=== PATIENT | female | born 1960 | race African-American/Black ===

== ENCOUNTER → 2017-04-09 | Outpatient (CLI) | payer OTHER, BC ==
[2016-08-31 16:19] VITALS: BP 123/67
[~2017-04-09] MED LIST: ALEN70TA5 PO; ARIP20TA5 PO; ASPI-630 PO; ATOR40TA59 PO; BACL10TA PO; BUTA1CAP29 PO; CARV3.122 PO; CLOP75TA PO; CYCL-331 PO; ERGO500027 PO; ESTR1TAB15 PO; FLUO20CA8 PO; FLUO40CA9 PO; FLUO60TA PO; FURO40TA4 PO; HYDR-971 PO; IBUP400T18 PO; LAMO100T5 PO; LORA1TAB PO; LORA2TAB PO; OMEP40CA5 PO; PANT40TA5 PO; POTA8TAB PO; PROP20TA PO; RANO500T2 PO; SIMV10TA3 PO; SOTA80TA48 PO; TIZA4CAP PO; TOPI200T25 PO
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
[2017-04-09 16:23] LABS: CREATININE 1.4 mg/dL (0.6-1.0); GFR 47.2
== END | disposition home or self-care (01) ==
LOC: CT 15:47
PROVIDERS: ATTEND Family Medicine
DX: S06.0X0A Concussion without loss of consciousness, initial encounter (principal); V89.2XXA Person injured in unspecified motor-vehicle accident, traffic, initial encounter; Y93.9 Activity, unspecified; Y92.89 Other specified places as the place of occurrence of the external cause; Y99.9 Unspecified external cause status
CPT/HCPCS: 36415; 70450; 82565

== ENCOUNTER 2017-04-11 19:55 | Observation (INO) | payer OTHER, BC ==
[~2017-04-11] VITALS: Ht 182.9 cm; Wt 108.0 kg
[~2017-04-11 19:55] MED LIST changes: -BACL10TA PO; -CYCL-331 PO; -FLUO20CA8 PO; -IBUP400T18 PO
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
[2017-04-11 21:03] LABS: BASO # 0.1 x10^3/uL (0.0-0.2); BASO % 0 % (0-3); EOS # 0.5 x10^3/uL (0.0-0.7); EOS % 4 % (0-3); HEMATOCRIT 35.4 % (36.0-47.0); HEMOGLOBIN 11.9 g/dL (12.0-15.5); LYMPH # 3.3 x10^3/uL (1.0-4.8); LYMPH % 28 % (24-48); MEAN CORPUSCULAR HEMOGLOBIN 31 pg (25-35); MEAN CORPUSCULAR HGB CONC 34 g/dL (31-37); MEAN CORPUSCULAR VOLUME 91 fL (79-100); MONO # 0.9 x10^3/uL (0.0-1.1); MONO % 8 % (0-9); NEUT # 6.9 x10^3uL (1.8-7.7); NEUT % 59 % (31-73); PLATELET COUNT 264 x10^3/uL (140-400); RED BLOOD COUNT 3.89 x10^6/uL (3.50-5.40); WHITE BLOOD COUNT 11.8 x10^3/uL (4.0-11.0)
--- NOTE | 2017-04-11 21:09 | RAD ---
Examination: CT abdomen with contrast HISTORY: History of altered mental status COMPARISON: 04/09/2015 TECHNIQUE: Axial CT images of the head was performed without contrast. Exposure: One or more of the following individualized dose reduction techniques were utilized for this examination: 1. Automated exposure control 2. Adjustment of the mA and/or kV according to patient size 3. Use of iterative reconstruction technique FINDINGS: There is no evidence of midline shift. There is no acute intracranial bleed or extra-axial fluid collection identified. The beasley-white matter differentiation is maintained. The visualized lateral ventricles, third ventricle, fourth ventricle are appropriate for age. The basal cisterns aren't effaced. The visualized paranasal sinuses, mastoid air cells are clear. IMPRESSION: No acute intracranial findings. Electronically signed by: Ede Christie MD (04/11/2017 9:06 PM)
[2017-04-11 21:17] LABS: ACETAMIN < 2 mcg/mL (10-30); ETHANOL < 10 mg/dL (0-10); SALIC 0.5 mg/dL (2.8-20.0)
[2017-04-11 21:27] LABS: CALCIUM 8.9 mg/dL (8.5-10.1); CREATININE 1.3 mg/dL (0.6-1.0); GFR 51.5; MAGNESIUM 2.2 mg/dL (1.8-2.4); POTASSIUM 3.6 mmol/L (3.5-5.1)
[2017-04-11 21:30] LABS: AMPHETAMINE/METHAMPHETAMINE NEG (NEG); BARBITURATES NEG (NEG); BENZODIAZEPINES NEG (NEG); CANNABINOIDS NEG (NEG); COCAINE NEG (NEG); METHADONE NEG (NEG); OPIATES POS (NEG); PHENCYCLIDINE NEG (NEG)
[2017-04-11 21:41] LABS: BILIRUBIN,URINE NEG (NEG); CLARITY,URINE CLOUDY; COLOR,URINE YELLOW; GLUCOSE,URINE NEG (NEG); NITRITE,URINE NEG (NEG); UROBILINOGEN,URINE 0.2 mg/dL (0.2 mg/dL)
[2017-04-11 21:42] LABS: BACTERIA,URINE FEW /HPF (0-FEW); SQUAMOUS EPITHELIAL CELL,UR MANY /LPF
--- NOTE | 2017-04-11 23:00 | ACF ---
Admission Criteria Forms MENTAL STATUS CHANGE Clinical Indications for Inpatient Care (Place 'X' for any and all applicable criteria): Ongoing inpatient care may be needed for 1 or more of the following(1)(2)(3)(5)( 6): [ ]I. Suspected serious etiology (eg, medical disorder, USER EXPERIENCE RESEARCHER event) of altered mental status [ ]II. Danger to self or others not manageable at lower level of care [ ]III. Grave disability (eg, inability to perform self care necessary at lower level of care) [ ]IV. Agitation or inappropriate behavior interfering with care for primary condition (eg, attempting to discontinue lines or drains prematurely, unable to cooperate with respiratory care) [ ]V. Delirium [A] [D][E] as described by 1 or more of the following(26): [ ]a) Delirium due to alcohol or sedative [F] withdrawal [ ]b) Delirium of uncertain etiology that has not responded to appropriate empiric treatment [ ]c) Delirium that prevents performance of a life-sustaining function (eg, feeding or hydrating oneself) [X]. General contraindications and/or Inappropriate clinical situations for Observational Care in patients with Mental Status Change, when ANY ONE of the following is required: [X]a) Prediction of prolongation of LOS based on ANY ONE of the following may be considered as a contraindication for observational care 2, 3, 4, 5, 6, 7, 8, 9, 10, 11 [X]i) Age > 65 yrs. [ ]ii) Patient arriving by ambulance [ ]iii) Patient with high acuity [ ]iv) Patient requiring vital sign monitoring [ ]v) Patient on IV medication [ ]b) Systolic blood pressures greater than or equal to 180mmHg 3, 12 [ ]c) Patient with altered mental status including delirium and other alteration of consciousness, (3) [ ]d) Patient whose discharge disposition will be to a halfway home or rehabilitation home should not be managed in Emergency Department Observation Unit. CMS rule requires 3 days hospital stay before such placement.3,13 [ ]e) Patient with failure to thrive due to broad array of etiologies 3,16,17 [ ]f) Inability to ambulate 3,14 Extended stay beyond goal length of stay for the primary condition may be needed until ALL of the following are present(3)(5): [ ]a) Underlying medical etiology of mental status change is absent, or has been established and adequately treated [ ]b) Danger to self or others is absent or manageable at lower level of care. [ ]c) Behavior crisis management, including physical or chemical restraints, is not required or available at lower level of car [ ]d) Substance or alcohol withdrawal is absent or manageable at lower level of care. [ ]e) Behavioral symptoms (eg, agitation, somnolence, inappropriate behavior) are absent, or are manageable at lower level of care. The original [facility] content created by [facility] has been revised. The portions of the content which have been revised are identified through the use of italic text or in bold, and [facility] has neither reviewed nor approved the modified material. All other unmodified content is copyright [facility]. Please see references footnoted in the original [facility] edition 2016 Admission Criteria Met?: Yes JENNIFER RASMUSSEN Apr 11, 2017 22:59
[2017-04-11] MEDS ORDERED: ONDANSETRON PF 4 MG/2 ML VIAL. IV PRN (23:15)
[2017-04-12 00:15] VITALS: BP 138/72
[2017-04-12] MEDS ORDERED: IBUPROFEN 400 MG TABLET. PO PRN (00:45)
[2017-04-12] MEDS ORDERED: BACL10TA PO (01:01)
[2017-04-12] MEDS ORDERED: CYCL-331 PO (01:04)
[2017-04-12] MEDS ORDERED: FLUO20CA8 PO (01:04)
[2017-04-12] MEDS ORDERED: FLUO60TA PO (01:06)
[2017-04-12] MEDS ORDERED: IBUP400T18 PO (01:06)
--- NOTE | 2017-04-12 01:31 | EKG ---
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
[2017-04-12 04:22] LABS: BASO # 0.1 x10^3/uL (0.0-0.2); BASO % 1 % (0-3); EOS # 0.5 x10^3/uL (0.0-0.7); EOS % 5 % (0-3); HEMATOCRIT 34.1 % (36.0-47.0); HEMOGLOBIN 11.6 g/dL (12.0-15.5); LYMPH # 3.3 x10^3/uL (1.0-4.8); LYMPH % 34 % (24-48); MEAN CORPUSCULAR HEMOGLOBIN 31 pg (25-35); MEAN CORPUSCULAR HGB CONC 34 g/dL (31-37); MEAN CORPUSCULAR VOLUME 91 fL (79-100); MONO # 0.8 x10^3/uL (0.0-1.1); MONO % 8 % (0-9); NEUT # 5.1 x10^3uL (1.8-7.7); NEUT % 52 % (31-73); PLATELET COUNT 245 x10^3/uL (140-400); RED BLOOD COUNT 3.73 x10^6/uL (3.50-5.40); RED CELL DISTRIBUTION WIDTH 13.9 % (11.5-14.5); WHITE BLOOD COUNT 9.7 x10^3/uL (4.0-11.0)
[2017-04-12 04:33] LABS: CALCIUM 8.7 mg/dL (8.5-10.1); CREATININE 1.2 mg/dL (0.6-1.0); GFR 56.4; POTASSIUM 3.6 mmol/L (3.5-5.1)
[2017-04-12 06:19] VITALS: BP 118/82
--- NOTE | 2017-04-12 07:47 | RAD ---
Portable chest, 04/11/2017: History: Altered mental status, congestive heart failure Comparison is made to a study from 08/29/2016. The patient is rotated to the right. A left-sided transvenous pacing device is again noted with a single lead extending into the right heart. The heart size and pulmonary vascularity are normal. No pulmonary infiltrates are seen. There is no evidence of pleural fluid. There is a mild thoracic scoliosis. IMPRESSION: No acute cardiopulmonary abnormality is detected.
[2017-04-12] MEDS ORDERED: POTASSIUM CHLORIDE 8 MEQ TABLET.ER. PO SCH (08:00)
[2017-04-12] MEDS ORDERED: ASPIRIN 81 MG TAB.CHEW PO SCH (09:00)
[2017-04-12] MEDS ORDERED: FUROSEMIDE 40 MG TABLET PO SCH ×2 (09:00)
[2017-04-12] MEDS ORDERED: SOTALOL 80 MG TABLET. PO SCH (09:00)
[2017-04-12] MEDS ORDERED: FLUoxetine HCL 20 MG CAPSULE PO SCH (09:00)
[2017-04-12] MEDS ORDERED: BACLOFEN 10 MG TABLET PO PRN (10:00)
[2017-04-12] MEDS ORDERED: LORazepam 1 MG TABLET PO PRN (10:00)
[2017-04-12] MEDS ORDERED: ARIPiprazole 10 MG TABLET PO SCH (10:30)
[2017-04-12 10:38] VITALS: BP 119/79
[2017-04-12] MEDS ORDERED: HYDROcodone/APAP 5/325MG 1 TAB TABLET PO PRN (12:30)
[2017-04-12] MEDS ORDERED: LORA2TAB PO (13:13)
[2017-04-12] MEDS ORDERED: ARIP20TA5 PO (13:13)
[2017-04-12] MEDS ORDERED: ATORVASTATIN CALCIUM 20 MG TABLET PO SCH (21:00)
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
== END 2017-04-12 13:42 | disposition home or self-care (01) ==
LOC: ER 19:55 → 1 SOUTH 23:42
PROVIDERS: ADMIT Family Medicine; ATTEND Family Medicine
DX: G93.40 Encephalopathy, unspecified (principal); G43.909 Migraine, unspecified, not intractable, without status migrainosus; I25.2 Old myocardial infarction; I25.10 Atherosclerotic heart disease of native coronary artery without angina pectoris; E78.00 Pure hypercholesterolemia, unspecified; K21.9 Gastro-esophageal reflux disease without esophagitis; F32.9 Major depressive disorder, single episode, unspecified; I50.9 Heart failure, unspecified; G89.29 Other chronic pain; Z87.442 Personal history of urinary calculi; Z95.810 Presence of automatic (implantable) cardiac defibrillator; Z95.5 Presence of coronary angioplasty implant and graft; Z90.710 Acquired absence of both cervix and uterus; Z83.3 Family history of diabetes mellitus; Z82.49 Family history of ischemic heart disease and other diseases of the circulatory system
CPT/HCPCS: 36415; 70450; 71010; 80048; 81001; 82140; 82553; 83605; 83735; 83880; 84484; 85027; 85610; 85730; 87040; 87086; 93005; 99285; G0378; G0480; G0481; G0379

== ENCOUNTER → 2017-05-20 | Outpatient (CLI) | payer MEDICARE ==
[2017-05-05 09:44] VITALS: BP 121/78
[~2017-05-20] MED LIST changes: +BACL10TA PO; +CYCL-331 PO; +FLUO20CA8 PO; +IBUP400T18 PO
--- NOTE | 2017-05-20 15:05 | RAD ---
Renal ultrasound, 05/20/2017: History: Abnormal renal function studies, previous right kidney stone The right kidney measures 9.8 cm in length while the left kidney measures 10.6 cm. There is no evidence of hydronephrosis or a renal mass. The renal parenchymal echogenicity is within normal limits. No renal calculus is identified. Limited views of urinary bladder show no abnormality. Bilateral ureteral jets are present. There is only a tiny volume of post voiding residual urine in the bladder estimated at 10 cc. IMPRESSION: No significant renal abnormality is detected.
== END | disposition home or self-care (01) ==
LOC: US 10:43
PROVIDERS: ATTEND Nurse Practitioner Family
DX: R94.5 Abnormal results of liver function studies (principal); Z87.442 Personal history of urinary calculi
CPT/HCPCS: 76770

== ENCOUNTER → 2017-09-24 | Outpatient (CLI) | payer MEDICARE ==
[2017-05-05 09:44] VITALS: BP 121/78
--- NOTE | 2017-09-24 12:14 | RAD ---
DATE: 09/24/2017 EXAM: MAMMO MEHNAZ SCREENING BILATERAL HISTORY: Routine screening COMPARISON: 01/17/2014 This study was interpreted with the benefit of Computerized Aided Detection (CAD). The breast parenchyma is heterogeneously dense, which could reduce sensitivity of mammography. Breast parenchyma level C. FINDINGS: 2-D and 3-D tomosynthesis imaging was performed in CC and MLO projections. No new or enlarging breast density is seen. Several benign type calcifications are noted. No suspicious microcalcifications have developed. IMPRESSION: There is no mammographic evidence of malignancy in either breast. BI-RADS CATEGORY: 2 BENIGN FINDING(S) RECOMMENDED FOLLOW-UP: 12M 12 MONTH FOLLOW-UP PQRS compliance statement: Patient information was entered into a reminder system with a target due date for the next mammogram. Mammography is a sensitive method for finding small breast cancers, but it does not detect them all and is not a substitute for careful clinical examination. A negative mammogram does not negate a clinically suspicious finding and should not result in delay in biopsying a clinically suspicious abnormality. "Our facility is accredited by the [employer] Mammography Program."
== END | disposition home or self-care (01) ==
LOC: MAMMO 09:34
PROVIDERS: ATTEND Physician Assistant
DX: Z12.31 Encounter for screening mammogram for malignant neoplasm of breast (principal)
CPT/HCPCS: 77063; G0202; 77067

== ENCOUNTER → 2019-10-03 | Outpatient (CLI) | payer MEDICARE ==
[2017-05-05 09:44] VITALS: BP 121/78
[~2019-10-03] MED LIST changes: -ALEN70TA5 PO; +ALEN70TA6 PO; -CARV3.122 PO; +CARV3.1230 PO; +HYDR-3165 PO; -HYDR-971 PO; +LORA-254 PO; -LORA1TAB PO; +OMEP40CA45 PO; -OMEP40CA5 PO; +SIMV10TA15 PO; -SIMV10TA3 PO
--- NOTE | 2019-10-06 14:26 | RAD ---
3d digital tomography Bilateral History: Routine screening Technique: Bilateral 3d digital tomographic views were obtained and reviewed on a workstation. In addition, CAD - computer aided detection was utilized. Comparison: Most recently on 09/24/2017. Findings: Breast Tissue Density C : The breast tissue is heterogeneously dense. Scattered fibroglandular elements may obscure underlying pathology. No newly identified suspicious microcalcifications, mass or architectural distortion throughout either breast. On the left breast CC view, more conspicuous microcalcifications at the anterior aspect of the breast located medial are linearly distributed on the MLO view a low-density, well-circumscribed mass at the medial/inferior aspect of the right breast was present previously. And appear to be vascular in origin. Impression: No findings concerning for malignancy within either breast. No significant interval change. BI-RADS Category 2: Benign. Recommendation: Routine screening mammography in one year. The patient will receive a letter with the results in the mail. "Our facility is accredited by the [employer] Mammography Program."
== END | disposition home or self-care (01) ==
LOC: MAMMO 12:34
PROVIDERS: ATTEND Physician Assistant
DX: Z12.31 Encounter for screening mammogram for malignant neoplasm of breast (principal)
CPT/HCPCS: 77063; 77067

== ENCOUNTER 2020-07-07 05:31 | Observation (INO) | payer MEDICARE ==
[~2020-07-07] VITALS: Ht 180.3 cm; Wt 106.5 kg
[~2020-07-07 05:31] MED LIST changes: +FLUO20CA20 PO; -FLUO20CA8 PO; -PANT40TA5 PO; +PANT40TA6 PO
[2020-07-07 06:09] LABS: BASO % 0 % (0-3); EOS # 0.2 x10^3/uL (0.0-0.7); EOS % 2 % (0-3); HEMATOCRIT 39.6 % (36.0-47.0); HEMOGLOBIN 13.1 g/dL (12.0-15.5); LYMPH % 26 % (24-48); MEAN CORPUSCULAR HEMOGLOBIN 33 pg (25-35); MEAN CORPUSCULAR HGB CONC 33 g/dL (31-37); MEAN CORPUSCULAR VOLUME 100 fL (79-100); MONO # 0.8 x10^3/uL (0.0-1.1); MONO % 7 % (0-9); NEUT # 7.6 x10^3uL (1.8-7.7); NEUT % 66 % (31-73); PLATELET COUNT 280 x10^3/uL (140-400); RED BLOOD COUNT 3.98 x10^6/uL (3.50-5.40); RED CELL DISTRIBUTION WIDTH 13.6 % (11.5-14.5); WHITE BLOOD COUNT 11.6 x10^3/uL (4.0-11.0)
--- NOTE | 2020-07-07 06:12 | PHYS DOC ---
Past History Past Medical History: VT, Stroke Past Surgical History: Hysterectomy, Other Additional Past Surgical Histo: cardiac stents x 3 Smoking: Non-smoker Alcohol Use: None Drug Use: None Adult General Chief Complaint Chief Complaint: AMS HPI HPI Patient is a 59-year-old male who presents via POV with for altered mental status. Onset was first noticed last night when reports patient repeatedly stating "I do not feel well". Patient slept well overnight but this morning, noticed sluggish mentation and gross psychomotor retardation without any focal defects which is not typical per her baseline. Patient denies any pain. Denies any prodromal symptoms. No recent fever, travel, COVID-19 contacts, chest pain, shortness of breath, headache or neck pain, abdominal pain, no motor or sensory changes, no focal neurological deficits reported, there have been no medication changes and she and confirms 100% medication compliance. Patient and admit that she had recurring feelings of incomplete bladder emptying this morning and increased urinary frequency. Review of Systems Review of Systems Fourteen body systems of review of systems have been reviewed. See HPI for pertinent positives and negative responses, other rod all other systems are negative, non-pertinent or non-contributory Allergies Allergies Allergies Coded Allergies Type Severity Reaction Last Updated Verified Cephalexin Monohydrate Allergy Intermediate Rash 07/07/20 Yes Penicillins Allergy Intermediate Rash 07/07/20 Yes ampicillin Allergy Intermediate Rash 07/07/20 Yes sumatriptan Adverse Reaction Severe VT 07/07/20 Yes sumatriptan succinate Adverse Reaction Severe 07/07/20 Yes Physical Exam Physical Exam Constitutional: Well developed, well nourished, no acute distress, non-toxic ap pearance. HENT: Normocephalic, atraumatic, bilateral external ears normal, oropharynx moist, no oral exudates, nose normal. Eyes: PERRLA, EOMI, conjunctiva normal, no discharge. Neck: Normal range of motion, no tenderness, supple, no stridor. Cardiovascular: Heart rate regular, sinus rhythm, no murmurs rubs or gallops. Pacemaker present Lungs & Thorax: Bilateral breath sounds clear to auscultation Abdomen: Bowel sounds normal, soft, no tenderness, no masses, no pulsatile masses. Nonsurgical abdomen, no peritoneal signs Skin: Warm, dry, no erythema, no rash. Back: No tenderness, no CVA tenderness. Extremities: No tenderness, no cyanosis, no clubbing, ROM intact, no edema. Neurologic: Alert and oriented X 3, cranial nerves II through XII intact, unremarkable gait, normal motor & sensory function, no focal deficits noted. Psychologic: Blunted affect, judgement normal, depressed mood. Current Patient Data Vital Signs Vital Signs Date Time Temp Pulse Resp B/P (MAP) Pulse Ox O2 Delivery O2 Flow Rate FiO2 07/07/20 05:31 98.1 74 16 113/76 (88) 98 Room Air Lab Results Laboratory Tests Test 07/07/20 05:44 07/07/20 05:50 07/07/20 06:47 Glucose (Fingerstick) 118 mg/dL (70-99) White Blood Count 11.6 x10^3/uL (4.0-11.0) Red Blood Count 3.98 x10^6/uL (3.50-5.40) Hemoglobin 13.1 g/dL (12.0-15.5) Hematocrit 39.6 % (36.0-47.0) Mean Corpuscular Volume 100 fL (79-100) Mean Corpuscular Hemoglobin 33 pg (25-35) Mean Corpuscular Hemoglobin Concent 33 g/dL (31-37) Red Cell Distribution Width 13.6 % (11.5-14.5) Platelet Count 280 x10^3/uL (140-400) Neutrophils (%) (Auto) 66 % (31-73) Lymphocytes (%) (Auto) 26 % (24-48) Monocytes (%) (Auto) 7 % (0-9) Eosinophils (%) (Auto) 2 % (0-3) Basophils (%) (Auto) 0 % (0-3) Neutrophils # (Auto) 7.6 x10^3uL (1.8-7.7) Lymphocytes # (Auto) 3.0 x10^3/uL (1.0-4.8) Monocytes # (Auto) 0.8 x10^3/uL (0.0-1.1) Eosinophils # (Auto) 0.2 x10^3/uL (0.0-0.7) Basophils # (Auto) 0.0 x10^3/uL (0.0-0.2) Prothrombin Time 10.1 SEC (9.4-11.4) Prothromb Time International Ratio 1.0 (0.9-1.1) Activated Partial Thromboplast Time 26 SEC (23-33) Sodium Level 144 mmol/L (136-145) Potassium Level 3.6 mmol/L (3.5-5.1) Chloride Level 106 mmol/L (98-107) Carbon Dioxide Level 31 mmol/L (21-32) Anion Gap 7 (6-14) Blood Urea Nitrogen 14 mg/dL (7-20) Creatinine 1.4 mg/dL (0.6-1.0) Estimated GFR (Cockcroft-Gault) 46.7 BUN/Creatinine Ratio 10 (6-20) Glucose Level 123 mg/dL (70-99) Calcium Level 9.2 mg/dL (8.5-10.1) Magnesium Level 2.0 mg/dL (1.8-2.4) Total Bilirubin 0.2 mg/dL (0.2-1.0) Aspartate Amino Transf (AST/SGOT) 26 U/L (15-37) Alanine Aminotransferase (ALT/SGPT) 38 U/L (14-59) Alkaline Phosphatase 96 U/L (46-116) Troponin I Quantitative < 0.017 ng/mL (0-0.055) NT-Bbb-I-Type Natriuretic Peptide 508 pg/mL (0-124) Total Protein 6.9 g/dL (6.4-8.2) Albumin 3.7 g/dL (3.4-5.0) Albumin/Globulin Ratio 1.2 (1.0-1.7) Urine Collection Type U cath Urine Color Straw Urine Clarity Clear Urine pH 6.0 Urine Specific [place] 1.015 Urine Protein Neg (NEG-TRACE) Urine Glucose (UA) Neg mg/dL (NEG) Urine Ketones (Stick) Neg mg/dL (NEG) Urine Blood Mod (NEG) Urine Nitrite Neg (NEG) Urine Bilirubin Neg (NEG) Urine Urobilinogen Dipstick 0.2 mg/dL (0.2 mg/dL) Urine Leukocyte Esterase Neg (NEG) Urine RBC 1-2 /HPF (0-2) Urine WBC Occ /HPF (0-4) Urine Squamous Epithelial Cells None /LPF Urine Bacteria 0 /HPF (0-FEW) Urine Opiates Screen Pos (NEG) Urine Methadone Screen Neg (NEG) Urine Barbiturates Neg (NEG) Urine Phencyclidine Screen Neg (NEG) Urine Amphetamine/Methamphetamine Neg (NEG) Urine Benzodiazepines Screen Neg (NEG) Urine Cocaine Screen Neg (NEG) Urine Cannabinoids Screen Neg (NEG) Urine Ethyl Alcohol Neg (NEG) EKG EKG EKG ordered and interpreted by myself at 0606 hrs. as sinus rhythm at 73 bpm, intervals grossly unremarkable except prolonged TX 230 and prolonged QTC 498, no axis deviation, no acute STEMI, signs of old infarct in inferior leads II, III, aVF, nonspecific T wave changes in leads V2, V3, V4 Radiology/Procedures Radiology/Procedures PROCEDURE: CT HEAD WO CONTRAST CT HEAD WO CONTRAST Date: 07/07/2020 5:47 AM Clinical Indication: confusion Comparison: 04/11/2017. Technique: 5 mm axial tomographic images were obtained of the head without contrast. These were viewed on brain and bone windows. One or more of the following dose reduction techniques were utilized: Automated exposure control (AEC), Adjustment of mA and/or kV according to patient size, Use of iterative reconstruction technique such as ASiR, CT scan done according to ALARA and image gently/image wisely Findings: The brain parenchyma is normal in attenuation. No intra- or extra-axial mass or fluid collection. No acute hemorrhage. The ventricles are normal in size, shape, and morphology. The beasley-white matter junction is normal. The subarachnoid cisterns are patent. The visualized paranasal sinuses are normal. The visualized portions of the orbits and globes are normal. The mastoid air cells are clear. 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 Impression: No acute intracranial process. Electronically signed by: Krystian Avina MD (07/07/2020 7:01 AM) [id number] PROCEDURE: PORTABLE CHEST 1V INDICATION: Reason: soa / Spl. Instructions: / History: COMPARISON: April 2017 FINDINGS: Single view of chest obtained. AICD is again seen. Cardiac silhouette is upper limits of normal in size. Hypoexpanded examination of the lungs. No definite focal airspace consolidation. IMPRESSION: * No focal airspace consolidation or edema. Electronically signed by: Umair Butler MD (07/07/2020 7:04 AM) [id number] Course & Med Decision Making Course & Med Decision Making Signout obtained from PM physician that triaged patient and input initial orders Ambulatory patient seen in conjunction with , ABCs unremarkable Comprehensive history and physical exam obtained with the assistance of , subsequent diagnostic studies ordered Patient periodically assessed throughout entirety of ER visit, no clear resolution of slowed mental state Reviewed diagnostic work-up thus far, reviewed grossly benign findings Discussed positive opiate screen, 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 She reports taking x2 tablets BID, double her scheduled dose. This might be cause of presenting symptoms? Nonetheless, case reviewed with patient and . uncomfortable taking and caring for her at home in current state, I agree with his concern. I discussed case with patient's PCP, Dr. Gates, who agreed with need for inpatient admission and further medical observation and management Discussed need for admission with patient and , both agreeable. All questions and concerns addressed prior to transport to [facility] for further care Dragon Disclaimer Dragon Disclaimer This electronic medical record was generated, in whole or in part, using a voice recognition dictation system. Departure Departure: Impression: Primary Impression: Altered mental state Disposition: ADMITTED INPATIENT Admitting Physician: Stacy Gates Condition: STABLE Referrals: STACY GATES MD (PCP) Justification of Admission: Justification of Admission: Justification of Admission Dx: Yes Altered Mental Status: Altered Mental Status PRAVEENATODD Jul 07, 2020 06:12
[2020-07-07 06:18] LABS: CALCIUM 9.2 mg/dL (8.5-10.1); CREATININE 1.4 mg/dL (0.6-1.0); GFR 46.7; POTASSIUM 3.6 mmol/L (3.5-5.1)
[2020-07-07 06:30] LABS: ALBUMIN 3.7 g/dL (3.4-5.0); ALBUMIN/GLOBULIN RATIO 1.2 (1.0-1.7); TOTAL BILIRUBIN 0.2 mg/dL (0.2-1.0); TOTAL PROTEIN 6.9 g/dL (6.4-8.2)
--- NOTE | 2020-07-07 07:04 | RAD ---
CT HEAD WO CONTRAST Date: 07/07/2020 5:47 AM Clinical Indication: confusion Comparison: 04/11/2017. Technique: 5 mm axial tomographic images were obtained of the head without contrast. These were viewed on brain and bone windows. One or more of the following dose reduction techniques were utilized: Automated exposure control (AEC), Adjustment of mA and/or kV according to patient size, Use of iterative reconstruction technique such as ASiR, CT scan done according to ALARA and image gently/image wisely Findings: The brain parenchyma is normal in attenuation. No intra- or extra-axial mass or fluid collection. No acute hemorrhage. The ventricles are normal in size, shape, and morphology. The beasley-white matter junction is normal. The subarachnoid cisterns are patent. The visualized paranasal sinuses are normal. The visualized portions of the orbits and globes are normal. The mastoid air cells are clear. 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 Impression: No acute intracranial process. Electronically signed by: Krystian Avina MD (07/07/2020 7:01 AM) [id number]
--- NOTE | 2020-07-07 07:07 | RAD ---
INDICATION: Reason: soa / Spl. Instructions: / History: COMPARISON: April 2017 FINDINGS: Single view of chest obtained. AICD is again seen. Cardiac silhouette is upper limits of normal in size. Hypoexpanded examination of the lungs. No definite focal airspace consolidation. IMPRESSION: * No focal airspace consolidation or edema. Electronically signed by: Umair Butler MD (07/07/2020 7:04 AM) [id number]
[2020-07-07 07:10] LABS: BILIRUBIN,URINE NEG (NEG); CLARITY,URINE CLEAR; COLOR,URINE STRAW; GLUCOSE,URINE NEG (NEG); NITRITE,URINE NEG (NEG); UROBILINOGEN,URINE 0.2 mg/dL (0.2 mg/dL)
[2020-07-07 07:11] LABS: BACTERIA,URINE 0 /HPF (0-FEW); WBC,URINE OCC /HPF (0-4)
[2020-07-07 07:15] LABS: BARBITURATES NEG (NEG); BENZODIAZEPINES NEG (NEG); CANNABINOIDS NEG (NEG); COCAINE NEG (NEG); METHADONE NEG (NEG); OPIATES POS (NEG); PHENCYCLIDINE NEG (NEG)
[2020-07-07 07:16] LABS: AMPHETAMINE/METHAMPHETAMINE NEG (NEG)
[2020-07-07 08:30] VITALS: BP 123/68
[2020-07-07] MEDS ORDERED: TRAM50TA PO (08:45)
[2020-07-07] MEDS ORDERED: PROM25TA10 PO (08:45)
[2020-07-07] MEDS ORDERED: PANT40TA3 PO (08:45)
[2020-07-07] MEDS ORDERED: ONDA4TAB12 PO (08:45)
[2020-07-07 11:11] VITALS: BP 119/71
[2020-07-07] MEDS ORDERED: ONDANSETRON ODT 4 MG TAB.RAPDIS PO PRN (11:45)
[2020-07-07] MEDS ORDERED: BACLOFEN 10 MG TABLET PO PRN (11:45)
[2020-07-07] MEDS ORDERED: LORazepam 1 MG TABLET PO PRN (12:00)
--- NOTE | 2020-07-07 12:59 | HP ---
ADMIT DATE: 07/07/2020 HISTORY OF PRESENT ILLNESS: A 59-year-old female in her usual state of health until yesterday when she began to stating she did not feel well, but also was having problems with her mentation, losing thought as well as apparently even having acute narcolepsy type symptoms. There was no seizure activity; however, the patient did lose her thought, had trouble forming her words and enunciating. She had no drooling. She did have generalized weakness all over, but did not have any other problem per se. The patient denied any fever, chills, chest pain and so forth, headache and alike. The patient was admitted for possible TIAs or stroke in evolution and consult with Dr. Farrell, neurologist. The patient had a CT scan in the ER, which the acute CT was negative. Chest x-ray was negative. PAST MEDICAL HISTORY: Includes that of migraines, chronic cardiac disease, heart attacks, congestive heart failure, coronary stent placement, internal defibrillator, hypercholesterolemia, gastroesophageal reflux, hysterectomy, GERD, kidney stones, depression. IMMUNIZATION: Pneumococcal vaccination up-to-date. FAMILY HISTORY: Father with diabetes. Mother with heart attack. There is also family history of hypertension, cardiovascular disease and angina. ALLERGIES: KEFLEX, PENICILLIN, AMPICILLIN, SUMATRIPTAN. SOCIAL HISTORY: The patient denies smoking, alcohol or drug use. She is a full code. HOME MEDICATIONS: Includes promethazine 25 mg q.8 p.r.n., baclofen 10 mg, atorvastatin 40, sotalol 80 b.i.d., aspirin 81, tramadol 50, fluoxetine 60, Abilify 20, lorazepam 2 mg q.8 p.r.n., potassium chloride 8, furosemide 40, Zofran 4, Protonix 40, alendronate 70. REVIEW OF SYSTEMS: As stated. She denied any headaches, visual changes, denied blurred vision. She did have trouble with enunciation. The patient denies any chest pain, shortness of breath, abdominal pain. Denies any nausea, vomiting, or diaphoresis. Just general tingling, weakness of over her body; otherwise, unremarkable. PHYSICAL EXAMINATION: GENERAL: This is a very pleasant -Citizen Of [place] female, quite anxious over the loss of her ability to enunciate words. VITAL SIGNS: Blood pressure somewhere along the line was elevated, but now presently 119/70, respiratory rate 18, pulse 70, afebrile. Weight 100 kilos. HEENT: The patient's head was atraumatic, normocephalic. Eyes: PERRLA without jaundice. The mouth and throat were normal. NECK: Supple. No JVD, carotids or thyromegaly. LUNGS: Diminished, but basically clear. CARDIOVASCULAR: Regular sinus rhythm. S1, S2, without murmur, rub, thrill, or extra heart sounds. ABDOMEN: Soft, nontender, no rebounding or guarding. Positive bowel sounds, no hepatosplenomegaly. EXTREMITIES: No clubbing, cyanosis. Trace edema. Pulses noted distally. NEUROLOGIC: The patient is alert and oriented x 3. Her speech was appropriate. However, she did drop words occasionally, have trouble finding words to express herself. Otherwise, the patient had good reflexes in both the upper and lower extremities. Gait not tested. She was feeling weak. Neurologically, otherwise, basically stable. Good muscle tone, good muscle strength and content of speech was appropriate. LABORATORY DATA: Her white count was 11.6, hemoglobin 13 and 39. All her electrolytes were normal except for blood sugar was elevated at 123. BNP of 508. TSH was normal. Toxicology positive for opiates. She does take tramadol. UA was unremarkable. IMPRESSION: Therefore, transient ischemic attack, history of coronary artery disease, hyperglycemia. PLAN: The patient will be admitted and placed on a neurological observation and also have Dr. Farrell reviewed the patient for timely suggestions, will do carotid Dopplers. She still has this defibrillator may be impossible for her to get an MRI scan unfortunately and we will continue to monitor her accordingly with Dr. Farrell's timely suggestions. STACY GATES MD DR: LATASHA/jessika JOB#: [id number] / [id number]
[2020-07-07] MEDS: ATORVASTATIN CALCIUM 20 MG TABLET PO SCH (13:11)
[2020-07-07] MEDS: POTASSIUM CHLORIDE 10 MEQ TABLET.ER. PO SCH ×2 (13:12→20:17)
[2020-07-07] MEDS: FUROSEMIDE 40 MG TABLET PO SCH ×2 (13:12→20:17)
[2020-07-07] MEDS: ASPIRIN CHEWABLE 81 MG TABLET. PO SCH (13:12)
[2020-07-07] MEDS: ARIPiprazole 10 MG TABLET PO SCH (13:12)
[2020-07-07] MEDS: FLUoxetine HCL 20 MG CAPSULE PO SCH (13:12)
--- NOTE | 2020-07-07 15:54 | CONS ---
DATE OF CONSULTATION: 07/07/2020 NEUROLOGY CONSULTATION REFERRING PHYSICIAN: Dr. Zavala. REASON FOR CONSULTATION: Difficulty finding words and mental status changes. HISTORY OF PRESENT ILLNESS: This is a 59-year-old right-handed female who was admitted to Emergency Room last night on 07/06/2020 after she presented with a sudden onset of mental status changes, slurred speech and difficulty finding words. The patient has been doing well until last night. She denies any recent fever, travel or COVID-19 contact, chest pain, shortness of breath or palpitation, but she has had chronic frontal headaches associated with nausea, photophobia and phonophobia. Today, the headache has been 6/10 on pain scale. She denies weakness, paresthesia, or vertigo. She does have increased urinary frequency and difficulty emptying the bladder completely. Initial nonenhanced head CT scan revealed no acute intracranial process, otherwise unremarkable. The patient stated she has been snoring loudly at night; however, she had a sleep study 7 years ago, which was negative for sleep apnea. Currently, the patient describes difficulty finding some words. She also feels depressed. She sleeps only 4 hours at night and rarely takes a nap during the day. PAST MEDICAL HISTORY: Quite extensive including coronary artery disease, myocardial infarction x 3, angina, history of congestive heart failure, status post coronary artery stent placement, hyperlipidemia, migraine headaches, depressions, kidney stone, and gastroesophageal reflux disease. PAST SURGICAL HISTORY: Positive for coronary artery stent placement, defibrillator placement and hysterectomy. FAMILY HISTORY: Positive for coronary artery disease and heart attack in her mother. SOCIAL HISTORY: The patient is . She has no children because she has early hysterectomy. She denies smoking, alcohol drinking, or illicit drug use. ALLERGIES: CEPHALEXIN, MONOHYDRATE, PENICILLIN, AMPICILLIN, SUMATRIPTAN. CURRENT HOME MEDICATIONS: Pantoprazole 40 mg daily, sotalol 80 mg b.i.d., potassium 10 mEq b.i.d., Prozac 60 mg p.o. daily, Lipitor 40 mg daily, Abilify 10 mg p.o. daily, Lasix 40 mg b.i.d., aspirin 81 mg daily, lorazepam 1 mg t.i.d. p.r.n. for anxiety, tramadol 50 mg q. 6 hours p.r.n. for headaches and Zofran 4 mg q. 6 hours p.r.n. p.o. for nausea, baclofen 10 mg t.i.d. for muscle spasm. REVIEW OF SYSTEMS: A 12-point review of system was performed as mentioned above in history of present illness. Describes frontal headaches associated with nausea, photophobia and phonophobia and difficulty finding some words. PHYSICAL EXAMINATION: GENERAL: Obese -Citizen Of [place] female, not in acute distress. She weighs 106.5 kilos. VITAL SIGNS: Blood pressure 119/71, respiratory rate 18, pulse is 69, oxygen saturation is 95% on room air, temperature 97.8. HEENT: Normocephalic, atraumatic, otherwise unremarkable. NECK: Supple. Negative for carotid bruit, lymphadenopathy or thyromegaly. LUNGS: Clear to A and P. CARDIOVASCULAR: Regular rate and rhythm, normal S1, S2. There is no S3, S4 or murmurs. ABDOMEN: Soft. Bowel sounds positive. EXTREMITIES: Negative for cyanosis, clubbing or edema. NEUROLOGICAL EXAM: Mental Status: The patient is alert and oriented x 3. The speech is fluent. There is no language dysfunction. The patient has sometimes difficulty finding words or completing sentences. Abstract thinking is normal. The patient denies hallucination or delusion, but she appears to be depressed. CRANIAL NERVES: Visual choudhary are full. The pupils are reactive to light and accommodation. The extraocular movements are intact. There is no nystagmus. There is no facial motor or sensory deficit. Hearing is intact bilaterally. The palate is elevated symmetrically. Sternocleidomastoid muscles are powerful bilaterally. The patient shrugs her shoulders symmetrically, protrudes her tongue in the midline without fasciculation or atrophy. MOTOR: No focal muscle bulk was seen. The tone is normal. The strength is 5/5 throughout. SENSORY EXAMINATION: Revealed normal pinprick, light touch, vibratory and position senses. Deep tendon reflexes are symmetric and hypoactive with absent Achilles responses. GAIT: Normal. DIAGNOSTIC DATA: A nonenhanced head CT scan revealed no evidence of intracranial process. Chest x-ray revealed no cardiopulmonary process. LABORATORY DATA: CBC revealed white blood cells of 11.6 thousand, hemoglobin 13.1, hematocrit 39.6, platelet count 280. Chemistry revealed sodium of 144, potassium 3.6, chloride 106, CO2 of 31, BUN 14, creatinine 1.4, glucose 123, calcium 9.2. Liver enzymes are normal. Troponin level is normal. NPB is high at 508. TSH is normal. Urinalysis is negative for urinary tract infections. Urine drug screen is negative as well. PT is 10.1, INR 1 and PTT is 26. IMPRESSION: 1. Acute encephalopathy of unknown etiology, rule out transient ischemic attack, as the patient has had intermittent difficulty finding words and sometimes completing sentences. 2. Daily headaches, described as migrainous type associated with nausea, photophobia and phonophobia versus tension headaches. 3. Multiple medical problems including coronary artery disease, hyperlipidemia, gastroesophageal reflux disease, cardiac arrhythmia, constant loud snoring, rule out obstructive sleep apnea. RECOMMENDATIONS: 1. We will obtain a CT angio of the neck and the head. 2. We will start the patient on topiramate at 25 mg b.i.d. 3. Sleep study to be done on an outpatient basis. 4. Continue with current management initiated by Dr. Zavala. Hair CLAY MD DR: LISETTE/jessika JOB#: [id number] / [id number]
[2020-07-07] MEDS: IV NORMAL SALINE 1,000ML 1,000 ML IV SCH (15:58)
[2020-07-07 16:26] VITALS: BP 145/70
[2020-07-07 19:00] VITALS: BP 111/69
[2020-07-07] MEDS: traMADol 50 MG TABLET PO PRN (20:17)
[2020-07-07] MEDS: TOPIRAMATE 25 MG TABLET. PO SCH (20:17)
[2020-07-07] MEDS: SOTALOL 80 MG TABLET. PO SCH (20:17)
[2020-07-07] MEDS: NYSTATIN TOPICAL POWDER 15GM BOTTLE. TP SCH (21:00)
[2020-07-07] MEDS ORDERED: POTASSIUM CHLORIDE 8 MEQ PO SCH (21:00)
[2020-07-07] MEDS ORDERED: ACETAMINOPHEN 500 MG TABLET PO PRN (22:00)
[2020-07-07 23:00] VITALS: BP 98/55
[2020-07-08] MEDS: IV NORMAL SALINE 1,000ML 1,000 ML IV SCH (03:05)
[2020-07-08] MEDS: traMADol 50 MG TABLET PO PRN (03:05)
[2020-07-08 06:30] VITALS: BP 111/71
[2020-07-08 06:35] LABS: CALCIUM 8.2 mg/dL (8.5-10.1); CREATININE 1.2 mg/dL (0.6-1.0); GFR 55.8; POTASSIUM 3.1 mmol/L (3.5-5.1)
--- NOTE | 2020-07-08 06:57 | EKG ---
[address] [address] Test Date: 2020-07-07 Test Time: 05:55:19 Pat Name: JINNY MUKHERJEE Department: Room: 115 A Gender: F Tube Wrapper: : 1960 Requested By: STACY HERRERA Order Number: [id number] Reading MD: Rony Pelayo MD Measurements Intervals [place] Rate: 73 P: 40 NV: 230 QRS: -2 QRSD: 94 T: 20 QT: 448 QTc: 498 Interpretive Statements SINUS RHYTHM PROLONGED NV INTERVAL ANTERIOR TWI Electronically Signed On 07-09-2020 9:15:59 CDT by Rony Pelayo MD
[2020-07-08] MEDS ORDERED: POTASSIUM CHLORIDE 20 MEQ TABLET.ER. PO ONE (07:30)
[2020-07-08] MEDS ORDERED: IOHEXOL 350 MG/ML 100 ML VIAL. IV ONE (07:30)
[2020-07-08] MEDS: FUROSEMIDE 40 MG TABLET PO SCH (08:10)
[2020-07-08] MEDS: FLUoxetine HCL 20 MG CAPSULE PO SCH (08:11)
[2020-07-08] MEDS: SOTALOL 80 MG TABLET. PO SCH (08:11)
[2020-07-08] MEDS: ASPIRIN CHEWABLE 81 MG TABLET. PO SCH (08:12)
[2020-07-08] MEDS: POTASSIUM CHLORIDE 10 MEQ TABLET.ER. PO SCH (08:12)
[2020-07-08] MEDS: TOPIRAMATE 25 MG TABLET. PO SCH (08:12)
[2020-07-08] MEDS: ARIPiprazole 10 MG TABLET PO SCH (08:13)
[2020-07-08] MEDS: NYSTATIN TOPICAL POWDER 15GM BOTTLE. TP SCH (08:13)
[2020-07-08] MEDS: ATORVASTATIN CALCIUM 20 MG TABLET PO SCH (08:14)
[2020-07-08] MEDS ORDERED: PANTOPRAZOLE 40 MG TABLET. PO SCH (09:00)
[2020-07-08] MEDS ORDERED: ELECTROLYTE (NON-ICU) PROTOCOL MC PRN (09:30)
--- NOTE | 2020-07-08 09:51 | RAD ---
CTA head and neck History: Dizziness Technique: After bolus of intravenous contrast, volumetric CT data acquisition was acquired of the head and neck. Multiplanar reconstruction images to include MIP and 3-D reconstruction images are submitted. Exposure: One or more of the following individualized dose reduction techniques were utilized for this examination: 1. Automated exposure control 2. Adjustment of the mA and/or kV according to patient size 3. Use of iterative reconstruction technique. Comparison: July 07, [address] exam; CTA head April 11, 2015 Any determination of stenosis is based on NASCET criteria. CTA head: Findings: Both vertebral arteries constitute the basilar artery. There is visualization segments bilateral PICAs and duplicated right AICA, left AICA again not seen. There is visualization lateral superior cerebellar arteries. There is probably a tiny left posterior communicating artery although not well visualized in its entirety, no significant right posterior communicating artery visualized. No anterior communicating artery is visualized. No large vessel occlusive filling defect or aneurysm is identified. No significant intracranial stenosis is identified. Impression: 1. No significant intracranial stenosis or aneurysm is identified. Neck CTA: Findings: There is suboptimal contrast opacification of the cervical arterial vasculature, poor visualization of the more proximal vertebral arteries. There is also limited evaluation of the proximal common carotid arteries. There are normal anatomic origins of the great vessels. No significant stenosis or flow limiting dissection flap is identified of the cervical internal carotid arteries. There is some tortuosity of the right cervical internal carotid artery. The distal vertebral arteries are patent bilaterally without significant stenosis or dissection flap. Appearance of focus of decreased contrast opacification of the left internal jugular vein is probably due to mixing with nonopacified blood. Likely small nodes near superior margins of the superficial parotid glands bilaterally are similar. There is fairly advanced degenerative disc disease C4-5 to C6-7, to lesser degree more superior levels. There is multilevel cervical facet degenerative change. There is also uncovertebral degenerative change greatest C4-5 and C5-6. There is moderate to severe narrowing of left C4-5 neural foramen, at least moderate narrowing bilaterally at C3-5-6. There are some foci gas in the C4 and C6 vertebral bodies extending near the inferior endplates likely sequela of Schmorl's nodes. Impression: 1. Exam is limited as stated, limited characterization of the proximal great vessels. There is no significant stenosis of the cervical internal carotid arteries. Distal vertebral arteries are patent bilaterally, proximally poorly characterized on this exam. 2. There is multilevel cervical degenerative disc disease. There is multilevel variable cervical neural foramina compromise due to facet and uncovertebral degenerative change. Electronically signed by: Krystian Aviles MD (07/08/2020 9:48 AM) [id number]
[2020-07-08 11:07] VITALS: BP 111/70
--- NOTE | 2020-07-08 12:43 | PN ---
DATE: SUBJECTIVE: The patient denies any new medical or neurological complaints; however, she continues to have frontal headaches associated with nausea, photophobia and phonophobia. She denies vertigo, chest pain, shortness of breath or palpitation. CT angio of the neck and head revealed no significant abnormalities, however, degenerative disk disease, advanced. The patient denies any headaches in the occipital regions. OBJECTIVE: GENERAL: Well-developed, well-nourished female, not in acute distress. VITAL SIGNS: Blood pressure 111/71, respiratory rate 18, pulse is 75, oxygen saturation is 95%, temperature is 97.6. HEENT: Normocephalic, atraumatic, otherwise unremarkable. NECK: Supple. Negative for carotid bruit, lymphadenopathy or thyromegaly. LUNGS: Clear to A and P. CARDIOVASCULAR: Regular rate and rhythm, normal S1, S2. There is no S3, S4 or murmur. ABDOMEN: Soft. Bowel sounds positive. EXTREMITIES: Negative for cyanosis, clubbing or edema. NEUROLOGICAL EXAM: Normal mental status and intact cranial nerves. There are no focal motor or sensory deficits. Deep tendon reflexes were symmetric and hypoactive with absent Achilles responses. Gait and coordination are normal. IMPRESSION: 1. Possible transient ischemic attack resolved with normal neurological examination; however, the patient continues to complain of migraine-like headaches. 2. Multiple medical problems include loud snoring, possible obstructive sleep apnea, coronary artery disease, hyperlipidemia, gastroesophageal reflux disease and cardiac arrhythmias. RECOMMENDATIONS: 1. We will increase topiramate to 50 mg b.i.d. and follow up with Dr. Farrell after 2 weeks from discharge. 2. Continue with current management initiated by Dr. Zavala. 3. To schedule for outpatient sleep study. M Nancy FARRELL MD DR: LISETTE/jessika JOB#: [id number] / [id number]
--- NOTE | 2020-07-08 13:03 | RAD ---
DOPPLER CAROTID BILAT History: tia, speech difficulty, memory loss Multiple grayscale, color, and duplex spectral analysis waveform sonographic images were acquired of the carotid, subclavian, and vertebral arteries. Comparison: None Findings: RIGHT SIDE: Peak systolic flow velocity of the distal CCA is 98 cm/sec. Peak systolic flow velocity of the ICA is 77 cm/sec. The ICA/CCA ratio is 0.8. Peak end diastolic flow velocity of the ICA is 29 cm/sec. The peak systolic velocity of the ECA is 91 cm/sec. Minimal plaque formation is identified. LEFT SIDE: Peak systolic flow velocity of the distal CCA is 90 cm/sec. Peak systolic flow velocity of the ICA is 80 cm/sec. The ICA/CCA ratio is 0.9. Peak end diastolic flow velocity of the ICA is 24 cm/sec. Peak systolic flow velocity of the ECA is 71 cm/sec. Minimal plaque formation is identified. Vertebral arteries: Bilateral vertebral arteries demonstrate antegrade flow. Impression: There is no evidence of a hemodynamically significant stenosis. PQRS Compliance Statement - Stenosis calculations for carotid ultrasound studies are derived from validated velocity criteria which are known to correlate with the NASCET methodology. Electronically signed by: Krystian Avina MD (07/08/2020 1:01 PM) [id number]
[2020-07-08] MEDS ORDERED: TOPI50TA8 PO (13:25)
[2020-07-08] MEDS ORDERED: TOPIRAMATE 25 MG TABLET. PO SCH (21:00)
[2020-07-08] MEDS ORDERED: ATORVASTATIN CALCIUM 20 MG TABLET PO SCH (21:00)
[2020-07-09 03:07] LABS: HEMOGLOBIN A1C 6.4 % (4.8-5.6)
== END 2020-07-08 13:45 | disposition home or self-care (01) ==
LOC: ER 05:31 → INTOOBSV 07:30 → 1 SOUTH 07:30
PROVIDERS: ADMIT Family Medicine; ATTEND Family Medicine
DX: G45.9 Transient cerebral ischemic attack, unspecified (principal); I25.10 Atherosclerotic heart disease of native coronary artery without angina pectoris; E78.5 Hyperlipidemia, unspecified; E78.00 Pure hypercholesterolemia, unspecified; G93.40 Encephalopathy, unspecified; F32.9 Major depressive disorder, single episode, unspecified; G43.909 Migraine, unspecified, not intractable, without status migrainosus; I25.2 Old myocardial infarction; I50.9 Heart failure, unspecified; K21.9 Gastro-esophageal reflux disease without esophagitis; Z95.5 Presence of coronary angioplasty implant and graft; Z79.899 Other long term (current) drug therapy
CPT/HCPCS: 36415; 70450; 70496; 70498; 71045; 80048; 80053; 80307; 81001; 82607; 82947; 83036; 83735; 83880; 84443; 84484; 85025; 85610; 85730; 93005; 93880; 96360; 96361; 97165; 97530; 99285; G0378; G0379; J7030; Q9967

== ENCOUNTER → 2021-02-04 | Outpatient (CLI) | payer MEDICARE ==
[~2021-02-04] MED LIST changes: -ALEN70TA6 PO; +ALEN70TA71 PO; +ONDA4TAB12 PO; +PANT40TA3 PO; +PROM25TA10 PO; +TOPI50TA8 PO; +TRAM50TA PO
--- NOTE | 2021-02-04 15:49 | RAD ---
XR CERVICAL SPINE 2-3V 02/04/2021 9:50 AM INDICATION: Neck pain, degenerative changes COMPARISON: None available. TECHNIQUE: AP, lateral and odontoid views of cervical spine are provided. FINDINGS/ IMPRESSION: 1. There is minimal retrolisthesis of C4 on C5 and C5 on C6 measuring 1-2 mm. Moderate disc height lo ss at C4-C5, C5-C6 and C6-C7 with endplate sclerosis and marginal osteophytosis. There is no preverte bral edema. No acute fracture is identified. 2. There is facet fusion at C2-C3. Mild facet arthropathy. Moderate uncovertebral joint disease, most prominent at C3-C4, C4-C5 and C5-C6. Odontoid process is intact. Lateral masses of C1 articulate mindi ropriately with the C2 vertebral body. Electronically signed by: Toña Paul MD (02/04/2021 3:47 PM) [id number]
== END ==
LOC: DXRAD 09:40
PROVIDERS: ATTEND Psychiatry & Neurology Neurology
DX: M47.812 Spondylosis without myelopathy or radiculopathy, cervical region (principal); M43.12 Spondylolisthesis, cervical region; M25.78 Osteophyte, vertebrae
CPT/HCPCS: 72040

== ENCOUNTER 2021-03-13 01:57 | Emergency (ER) | payer MEDICARE ==
[~2021-03-13] VITALS: Ht 180.3 cm; Wt 97.7 kg
[2021-03-13] MEDS: ONDANSETRON ODT 4 MG TAB.RAPDIS PO ONE (03:00)
[2021-03-13 03:03] LABS: BASO # 0.1 x10^3/uL (0.0-0.2); BASO % 1 % (0-3); EOS # 0.2 x10^3/uL (0.0-0.7); EOS % 2 % (0-3); HEMATOCRIT 44.6 % (36.0-47.0); HEMOGLOBIN 15.2 g/dL (12.0-15.5); LYMPH # 3.5 x10^3/uL (1.0-4.8); LYMPH % 28 % (24-48); MEAN CORPUSCULAR HEMOGLOBIN 35 pg (25-35); MEAN CORPUSCULAR HGB CONC 34 g/dL (31-37); MEAN CORPUSCULAR VOLUME 102 fL (79-100); MONO # 1.1 x10^3/uL (0.0-1.1); MONO % 9 % (0-9); NEUT # 7.6 x10^3uL (1.8-7.7); NEUT % 60 % (31-73); PLATELET COUNT 395 x10^3/uL (140-400); RED BLOOD COUNT 4.37 x10^6/uL (3.50-5.40); RED CELL DISTRIBUTION WIDTH 14.9 % (11.5-14.5); WHITE BLOOD COUNT 12.5 x10^3/uL (4.0-11.0)
[2021-03-13] MEDS: IV RINGERS SOLUTION,LACTATED 1,000 ML IV ONE (03:15)
[2021-03-13] MEDS: ONDANSETRON PF 4 MG/2 ML VIAL. IVP ONE (03:16)
[2021-03-13 03:20] LABS: BILIRUBIN,URINE NEG (NEG); CLARITY,URINE CLEAR; COLOR,URINE YELLOW; GLUCOSE,URINE NEG (NEG)
[2021-03-13 03:21] LABS: BACTERIA,URINE 0 /HPF (0-FEW); NITRITE,URINE NEG (NEG); SQUAMOUS EPITHELIAL CELL,UR OCC /LPF; UROBILINOGEN,URINE 0.2 mg/dL (0.2 mg/dL); WBC,URINE 0 /HPF (0-4)
[2021-03-13 03:25] LABS: CALCIUM 9.7 mg/dL (8.5-10.1); CREATININE 1.3 mg/dL (0.6-1.0); GFR 50.7; POTASSIUM 3.8 mmol/L (3.5-5.1)
--- NOTE | 2021-03-13 04:16 | PHYS DOC ---
Past History Past Medical History: [place], Stroke Past Surgical History: Hysterectomy, Other Additional Past Surgical Histo: cardiac stents x 3 Smoking: Non-smoker Alcohol Use: None Drug Use: None Adult General Chief Complaint Chief Complaint: NAUSEA/VOMITING/DIARRHEA HPI HPI Patient is a 60-year-old female with a past medical history significant for migraines, and intermittent but chronic episodes of nausea and vomiting that are nonbloody and nonbilious who presents with a chief complaint of nausea and vomiting. States over the last couple of days she has had nausea and vomiting episodes despite taking her Zofran at home. States that the Zofran does help for a short amount of time allowing her to drink but wears off quickly. States that her primary care has been working on this over the last year or so and is going to try Compazine but has not got it yet and has an appointment with her physician and a prescription to turkey picker some time. Denies any recent travel, traumas, fevers, chest pain, shortness of breath. Review of Systems Review of Systems Review of systems otherwise unremarkable except noted in HPI Current Medications Current Medications Current Medications Medications (Trade) Dose Ordered Sig/Vannesa Start Time Stop Time Status Last Admin Dose Admin Lactated Ringer's 1,000 ml @ 1,000 mls/hr 1X ONCE 03/13/21 02:30 03/13/21 03:29 DC 03/13/21 03:15 1,000 MLS/HR Ondansetron HCl (Zofran Odt) 8 mg 1X ONCE 03/13/21 03:00 03/13/21 03:01 DC Ondansetron HCl (Zofran) 8 mg 1X ONCE 03/13/21 03:30 03/13/21 03:31 DC 03/13/21 03:16 8 MG Allergies Allergies Allergies Coded Allergies Type Severity Reaction Last Updated Verified Cephalexin Monohydrate Allergy Intermediate Rash 07/07/20 Yes Penicillins Allergy Intermediate Rash 07/07/20 Yes ampicillin Allergy Intermediate Rash 07/07/20 Yes sumatriptan Adverse Reaction Severe [place] 07/07/20 Yes sumatriptan succinate Adverse Reaction Severe 07/07/20 Yes Physical Exam Physical Exam Constitutional: Well developed, well nourished, no acute distress, non-toxic appearance. [] HENT: Normocephalic, atraumatic, bilateral external ears normal, oropharynx moist, no oral exudates, nose normal. [] Eyes: conjunctiva normal, no discharge. [] Neck: Normal range of motion, no tenderness, supple, no stridor. [] Cardiovascular:Heart rate regular rhythm, no murmur [] Lungs & Thorax: Bilateral breath sounds clear to auscultation [] Abdomen: Bowel sounds normal, soft, no tenderness, no masses, no pulsatile masses. [] Skin: Warm, dry, no erythema, no rash. [] Back: no CVA tenderness. [] Extremities: No tenderness, no cyanosis, no clubbing, ROM intact, no edema. [] Neurologic: Alert and oriented X 3, normal motor function, normal sensory function, no focal deficits noted. [] Psychologic: Affect normal, judgement normal, mood normal. [] Current Patient Data Lab Results Laboratory Tests Test 03/13/21 02:45 White Blood Count 12.5 x10^3/uL (4.0-11.0) H Red Blood Count 4.37 x10^6/uL (3.50-5.40) Hemoglobin 15.2 g/dL (12.0-15.5) Hematocrit 44.6 % (36.0-47.0) Mean Corpuscular Volume 102 fL (79-100) H Mean Corpuscular Hemoglobin 35 pg (25-35) Mean Corpuscular Hemoglobin Concent 34 g/dL (31-37) Red Cell Distribution Width 14.9 % (11.5-14.5) H Platelet Count 395 x10^3/uL (140-400) Neutrophils (%) (Auto) 60 % (31-73) Lymphocytes (%) (Auto) 28 % (24-48) Monocytes (%) (Auto) 9 % (0-9) Eosinophils (%) (Auto) 2 % (0-3) Basophils (%) (Auto) 1 % (0-3) Neutrophils # (Auto) 7.6 x10^3uL (1.8-7.7) Lymphocytes # (Auto) 3.5 x10^3/uL (1.0-4.8) Monocytes # (Auto) 1.1 x10^3/uL (0.0-1.1) Eosinophils # (Auto) 0.2 x10^3/uL (0.0-0.7) Basophils # (Auto) 0.1 x10^3/uL (0.0-0.2) Urine Collection Type Unknown Urine Color Yellow Urine Clarity Clear Urine pH 5.5 Urine Specific Copen 1.025 Urine Protein Trace (NEG-TRACE) Urine Glucose (UA) Neg mg/dL (NEG) Urine Ketones (Stick) Neg mg/dL (NEG) Urine Blood Mod (NEG) Urine Nitrite Neg (NEG) Urine Bilirubin Neg (NEG) Urine Urobilinogen Dipstick 0.2 mg/dL (0.2 mg/dL) Urine Leukocyte Esterase Neg (NEG) Urine RBC 11-20 /HPF (0-2) Urine WBC 0 /HPF (0-4) Urine Squamous Epithelial Cells Occ /LPF Urine Bacteria 0 /HPF (0-FEW) Sodium Level 140 mmol/L (136-145) Potassium Level 3.8 mmol/L (3.5-5.1) Chloride Level 101 mmol/L (98-107) Carbon Dioxide Level 25 mmol/L (21-32) Anion Gap 14 (6-14) Blood Urea Nitrogen 15 mg/dL (7-20) Creatinine 1.3 mg/dL (0.6-1.0) H Estimated GFR (Cockcroft-Gault) 50.7 Glucose Level 116 mg/dL (70-99) H Calcium Level 9.7 mg/dL (8.5-10.1) EKG EKG [] Radiology/Procedures Radiology/Procedures [] Heart Score C/O Chest Pain: No Risk Factors: Risk Factors: DM, Current or recent (<one month) smoker, HTN, HLP, family history of CAD, obesity. Risk Scores: Risk Factors: DM, Current or recent (<one month) smoker, HTN, HLP, family history of CAD, obesity. Course & Med Decision Making Course & Med Decision Making Patient is a 60-year-old female who presents with a chief complaint of acute on chronic nausea and vomiting Vital signs not concerning. Physical exam noted above. IV access established and IV fluid given. Zofran initially given for nausea. Laboratory analysis not concerning. Urinalysis notable for mild hematuria. On reassessment patient stated she was feeling much better would like to be discharged home. Discussed patient's episodes with chronic nausea over the last year. Given dexamethasone and second antiemetic agent to stay on top of the nausea. Given Phenergan. Given prescription for Phenergan for home. Advised to follow-up with primary care physician today to discuss ED visit and diagnosis and treatment as well. A dvised this set up a follow-up appointment as soon as possible. Gave strict return precautions to the ED. Patient grateful, verbalized understanding and agreed with plan of discharge. [] Dragon Disclaimer Dragon Disclaimer This electronic medical record was generated, in whole or in part, using a voice recognition dictation system. Departure Departure: Disposition: HOME / SELF CARE / HOMELESS Condition: GOOD Referrals: STACY GATES MD (PCP) Patient Instructions: Nausea and Vomiting Additional Instructions: Please read all the attached information carefully. Please continue to take your Zofran at home as prescribed every 8 hours and add your Phenergan prescription every 12 hours as discussed. Please maintain appropriate hydration as well. Please call your primary care physician first thing this morning to update on ED visit and set up a follow-up appointment as soon as you can to discuss your ED visit. Please come back to the emergency department immediately with any new or concerning symptoms as discussed. Scripts Promethazine Hcl (PROMETHAZINE HCL) 25 Mg Tablet 1 TAB PO Q8-12HRS for nausea, #20 TAB 1 Refill Prov: BUTCH HOUGH MD 03/13/21 BUTCH HOUGH MD March 13, 2021 04:16
[2021-03-13] MEDS ORDERED: PROM25TA10 PO (04:26)
[2021-03-13 04:30] VITALS: BP 130/80
[2021-03-13] MEDS: DEXAMETHASONE 4 MG TABLET PO ONE (04:41)
[2021-03-13] MEDS: PROMETHAZINE 25 MG TABLET. PO ONE (04:43)
== END 2021-03-13 04:47 | disposition home or self-care (01) ==
LOC: ER 01:57
DX: R11.2 Nausea with vomiting, unspecified (principal); G43.909 Migraine, unspecified, not intractable, without status migrainosus; I25.2 Old myocardial infarction; Z88.0 Allergy status to penicillin; Z90.710 Acquired absence of both cervix and uterus; Z88.1 Allergy status to other antibiotic agents
CPT/HCPCS: 36415; 80048; 81001; 85025; 96361; 96374; 99283; J2405; J7120; J8540; Q0169

== ENCOUNTER → 2021-04-08 | Outpatient (CLI) | payer MEDICARE ==
[2021-03-13 04:30] VITALS: BP 130/80
[~2021-04-08] MED LIST changes: +IOHEXOL 240 MG/ML 50ML VIAL. PO ONE; +IOHEXOL 300 MG/ML 75 ML VIAL. IV ONE
--- NOTE | 2021-04-08 13:28 | RAD ---
EXAM: Nuclear gastric emptying scan. HISTORY: Nausea and vomiting. Pain. COMPARISON: None. TECHNIQUE: Serial static images were obtained over the stomach following oral administration of 2 mCi 99m-Tc sulfur colloid. FINDINGS: The stomach empties into the small bowel without evidence of reflux in the area of the esop hagus. Gastric retention percents: 1 hour 68% (normal range 34.8-91%) 2 hour 37% (normal range 2.7-60%) 3 hour 20% (normal range 0.5-28%) 4 hour 10% (normal range 0-10%) The estimated time for half emptying of gastric contents, i.e. 'gastric emptying time' is 89 minutes (normal is 66 +/- 22 minutes). IMPRESSION: Upper limits of normal gastric emptying half-time and upper limits of normal gastric rete ntion at 4 hours. Electronically signed by: Venice Gerber MD (04/08/2021 1:25 PM) [id number]
--- NOTE | 2021-04-08 16:35 | RAD ---
Exam: CT abdomen/pelvis with intravenous contrast Indication: Chronic nausea with vomiting Comparison: CT abdomen and pelvis 08/29/2016 Technique: Helical CT imaging performed of the abdomen and pelvis after the intravenous administratio n of contrast. Sagittal and coronal reformats were obtained. One or more of the following individualized dose reduction techniques were utilized for this examinat ion: 1. Automated exposure control 2. Adjustment of the mA and/or kV according to patient size 3. Use of iterative reconstruction technique. Findings: Lower chest: Lung bases are clear. The heart is normal in size. Liver: The liver is enlarged measuring 20 cm craniocaudally. No focal lesion. Gallbladder/Biliary Tree: Normal. Pancreas: Normal. Spleen: Normal. Adrenal Glands: Normal. Kidneys/Ureters/Bladder: Normal. No urolithiasis or hydronephrosis. Reproductive Organs: Uterus is surgically absent. Probable 3 cm right ovarian cyst/cystic lesion. Stomach, small bowel, and colon: The stomach is normal. Small bowel and appendix are normal. Colon is normal. There is a large volume stool. Vasculature: Abdominal aorta is normal in caliber. Lymph Nodes: No lymphadenopathy. Peritoneum and retroperitoneum: No free fluid or free air. Bones: No acute osseous abnormality. Moderate degenerative disc disease at L5-S1. There is mild osteo arthrosis of the hips. Impression: 1. No acute abnormality in the abdomen and pelvis 2. Mild hepatomegaly. 3. 3 cm right ovarian cyst/cystic lesion. 4. Large volume of stool. Electronically signed by: Lala Woods MD (04/08/2021 4:32 PM) [id number]
== END ==
LOC: NM 07:39
PROVIDERS: ATTEND Family Medicine
DX: R16.0 Hepatomegaly, not elsewhere classified (principal); M16.10 Unilateral primary osteoarthritis, unspecified hip; Z90.49 Acquired absence of other specified parts of digestive tract
CPT/HCPCS: 74178; 78264; A9541; Q9966; Q9967

== ENCOUNTER 2021-10-11 11:52 | Emergency (ER) | payer MEDICARE ==
[~2021-10-11] VITALS: Ht 180.3 cm; Wt 93.1 kg
[~2021-10-11 11:52] MED LIST changes: -CYCL-331 PO; +CYCL10TA19 PO; -FLUO20CA20 PO; +FLUO20CA22 PO; -IOHEXOL 240 MG/ML 50ML VIAL. PO ONE; -IOHEXOL 300 MG/ML 75 ML VIAL. IV ONE; -OMEP40CA45 PO; +OMEP40CA7 PO; -POTA8TAB PO; +POTA8TAB57 PO
[2021-10-11 12:02] VITALS: BP 114/71
--- NOTE | 2021-10-11 12:28 | PHYS DOC ---
Past History Past Medical History: CHF, [place], Migraines, Stroke Additional Past Medical Histor: gastroparesis Past Surgical History: Hysterectomy, Other Additional Past Surgical Histo: cardiac stents x 3; defib Smoking: Non-smoker Alcohol Use: None Drug Use: None Adult General Chief Complaint Chief Complaint: MECHANICAL FALL HPI HPI Patient is a 61-year-old female presenting with for fall. This was accidental, states she was outside and tripped on a brick that her left out while working on the car. Patient was holding groceries and had hands full when she fell forward landing on left anterior knee and subsequently hitting her right anterior forehead on the grass. Denies any obvious loss of consciousness but reports she was shaken up afterwards. was there and witnessed episode, no reported seizure-like activity, loss of bladder or bowel control etc. Given fall and concern for head injury, patient was transported to our ER for evaluation. She has numerous comorbid risk factors but she is not on any blood thinners. She is complaining of left anterior knee and right anterior forehead pain at this time Review of Systems Review of Systems Fourteen body systems of review of systems have been reviewed. See HPI for pe rtinent positives and negative responses, other rod all other systems are negative, non-pertinent or non-contributory Allergies Allergies Allergies Coded Allergies Type Severity Reaction Last Updated Verified Cephalexin Monohydrate Allergy Intermediate Rash 07/07/20 Yes Penicillins Allergy Intermediate Rash 07/07/20 Yes ampicillin Allergy Intermediate Rash 07/07/20 Yes sumatriptan Adverse Reaction Severe [place] 07/07/20 Yes sumatriptan succinate Adverse Reaction Severe 07/07/20 Yes Physical Exam Physical Exam Constitutional: Pt is oriented to person, place, and time. Pt appears well-developed and well- nourished. HEENT: Head: Normocephalic with small hematoma present to right anterior forehead 1 inch superior to eyebrow TMs clear, no hemotympanum Conjunctivae and EOM are normal. Pupils are equal, round, and reactive to light. Oropharynx is clear and moist. No hematomas or lacerations or abrasions to face or scalp OP clear, no blood, no malocclusion, dentition intact Nares clear, no nasal septal hematoma Midface stable Neck: C-spine midline nontender, no step-offs Cardiovascular: Normal rate, regular rhythm and normal heart sounds. Pulmonary/Chest: Effort normal and breath sounds normal. No respiratory distress. No wheezes. CTA bilaterally Abdominal: Soft. Bowel sounds are normal. Pt exhibits no distension. There is no tenderness. Musculoskeletal: No bony tenderness to extremities, no deformities, full ROM extremities Chest wall stable Pelvis stable and non-tender No vertebral TTP and spine without stepoffs Neurological: Pt is alert and oriented to person, place, and time. Moving all extremities willfully, able to wiggle all fingers and toes Alert and oriented x 3 Motor and sensory function intact Patient does have anterior tenderness to palpation over level of patella with negative patellar grind or any other visual or palpable abnormalities Skin: Skin is warm and dry. No abrasions, no lacerations Psychiatric: Behavior is appropriate for situation Current Patient Data Vital Signs Vital Signs Date Time Temp Pulse Resp B/P (MAP) Pulse Ox O2 Delivery O2 Flow Rate FiO2 10/11/21 12:02 83 18 114/71 (85) 97 EKG EKG [] Radiology/Procedures Radiology/Procedures XR KNEE _3 VIEWS_LT History: Reason: ANTERIOR KNEE PAIN AFTER FALL / Spl. Instructions: / History: Technique: 3 views left knee Comparison: None. Findings: No dislocation. No acute fracture. No significant knee joint effusion. Impression: 1. No acute osseous abnormality. Electronically signed by: Edwar Adler DO (10/11/2021 1:25 PM) [facility] ////////// CT HEAD INDICATION: Reason: FALL TO ANTERIOR RIGHT FOREHEAD / Spl. Instructions: / History: COMPARISON: None Available. Exposure: One or more of the following individualized dose reduction techniques were utilized for this examination: 1. Automated exposure control 2. Adjus tment of the mA and/or kV according to patient size 3. Use of iterative reconstruction technique TECHNIQUE: 5 mm contiguous axial images were obtained from the skull base to the vertex in both bone and soft tissue algorithm. FINDINGS: Minimal soft tissue contusion right forehead. No evidence of acute intracranial hemorrhage. No extra-axial fluid collections. No mass effect or midline shift. Ventricular size is appropriate. Basal cisterns are patent. No fractures identified.Goodman-white differentiation is preserved.Globes and orbits are within normal limits. Paranasal sinuses and mastoid air cells are clear. IMPRESSION: 1. No acute intracranial findings. 2. Minimal soft tissue contusion right forehead. Electronically signed by: Ede Christie MD (10/11/2021 1:09 PM) [id number] ////////////////////////////////////////////////// Heart Score C/O Chest Pain: No Risk Factors: Risk Factors: DM, Current or recent (<one month) smoker, HTN, HLP, family history of CAD, obesity. Risk Scores: Risk Factors: DM, Current or recent (<one month) smoker, HTN, HLP, family history of CAD, obesity. Course & Med Decision Making Course & Med Decision Making ABCs unremarkable Vitals, HPI, physical exam and comprehensive ER work-up nonconcerning for any emergent or surgical issues Radiograph and CT imaging nonconcerning for any emergent or surgical issues Discussed patient's fall, likely diagnosis of closed head injury with concern for concussion. Supportive care practices and close PCP follow-up advised in an otherwise hemodynamically stable patient with unremarkable gait and no neuro symptoms etc. Dragon Disclaimer Dragon Disclaimer This electronic medical record was generated, in whole or in part, using a voice recognition dictation system. Departure Departure: Impression: Primary Impression: Fall Disposition: 01 HOME / SELF CARE / HOMELESS Condition: STABLE Referrals: STACY GATES MD (PCP) Patient Instructions: Concussion-SportsMed, Head Injury, Adult Additional Instructions: As discussed prior to ER departure, you are suffering from sequelae of a fall. It is likely that you have experienced a contusion to your left knee and the right forehead that is causing you pain. Please use ice in addition to Tylenol for pain control.Please monitor your symptoms over next 24 hours and represent to the ER if any concerning signs or symptoms present. Please call your primary care physician first thing on Wednesday to review your ER visit and need for close outpatient follow-up. It is pleasure to take care of you and I wish you the best going forward TODD GRISSOM DO Oct 11, 2021 12:28
[2021-10-11] MEDS ORDERED: HYDROcodone/APAP 7.5/325MG 1 TAB TABLET PO ONE (12:30)
[2021-10-11] MEDS ORDERED: ONDANSETRON ODT 4 MG TAB.RAPDIS ONE (13:06)
--- NOTE | 2021-10-11 13:11 | RAD ---
CT HEAD INDICATION: Reason: FALL TO ANTERIOR RIGHT FOREHEAD / Spl. Instructions: / History: COMPARISON: None Available. Exposure: One or more of the following individualized dose reduction techniques were utilized for thi s examination: 1. Automated exposure control 2. Adjustment of the mA and/or kV according to patient size 3. Use of iterative reconstruction technique TECHNIQUE: 5 mm contiguous axial images were obtained from the skull base to the vertex in both bone and soft tissue algorithm. FINDINGS: Minimal soft tissue contusion right forehead. No evidence of acute intracranial hemorrhage. No extra-axial fluid collections. No mass effect or midline shift. Ventricular size is appropriate. Basal cisterns are patent. No fractures identified.Goodman-white differentiation is preserved.Globes and orbits are within normal l imits. Paranasal sinuses and mastoid air cells are clear. IMPRESSION: 1. No acute intracranial findings. 2. Minimal soft tissue contusion right forehead. Electronically signed by: Ede Christie MD (10/11/2021 1:09 PM) [id number]
[2021-10-11] MEDS ORDERED: PROCHLORPERAZINE 10 MG/2 ML VIAL. IV ONE (13:15)
--- NOTE | 2021-10-11 13:27 | RAD ---
XR KNEE _3 VIEWS_LT History: Reason: ANTERIOR KNEE PAIN AFTER FALL / Spl. Instructions: / History: Technique: 3 views left knee Comparison: None. Findings: No dislocation. No acute fracture. No significant knee joint effusion. Impression: 1. No acute osseous abnormality. Electronically signed by: Edwar Adler DO (10/11/2021 1:25 PM) [facility]
== END 2021-10-11 13:51 | disposition home or self-care (01) ==
LOC: ER 11:52
DX: S00.83XA Contusion of other part of head, initial encounter (principal); M25.562 Pain in left knee; I25.2 Old myocardial infarction; G43.909 Migraine, unspecified, not intractable, without status migrainosus; I50.9 Heart failure, unspecified; Z88.1 Allergy status to other antibiotic agents; Z88.0 Allergy status to penicillin; Z88.8 Allergy status to other drugs, medicaments and biological substances; W01.0XXA Fall on same level from slipping, tripping and stumbling without subsequent striking against object, initial encounter; Y93.89 Activity, other specified; Y92.89 Other specified places as the place of occurrence of the external cause; Y99.8 Other external cause status
CPT/HCPCS: 70450; 73562; 99284

== ENCOUNTER 2021-10-16 21:00 | Emergency (ER) | payer MEDICARE ==
[~2021-10-16] VITALS: Ht 180.3 cm; Wt 90.4 kg
[2021-10-16] MEDS ORDERED: IV NORMAL SALINE 1,000ML 1,000 ML IV ONE (21:45)
[2021-10-16] MEDS ORDERED: PROCHLORPERAZINE 10 MG/2 ML VIAL. IM ONE (21:45)
--- NOTE | 2021-10-16 21:47 | PHYS DOC ---
Past History Past Medical History: CHF, [place], Migraines, Stroke Additional Past Medical Histor: gastroparesis, degenerative disc d/o (neck), defibrillator Past Surgical History: Hysterectomy, Other Additional Past Surgical Histo: cardiac stents x 3; defib Smoking: Non-smoker Alcohol Use: None Drug Use: None General Adult EDM: Chief Complaint: NAUSEA/VOMITING/DIARRHEA HPI: HPI: Patient is a 61-year-old female coming in for 2 weeks of emesis. Patient is a history of chronic nausea and vomiting secondary to gastroparesis. States she saw her GI doctor earlier today who plan to do more tests. Patient that she has had some constipation but has small bowel movement this morning. Denies any abdominal distention, fevers, or coughing. Patient states that she has failed to keep or daily medications or any food down the past 3 to 5 days. States she has started to feel dizzy when standing up Review of Systems: Review of Systems: All other systems within normal limits except for as noted in the HPI Allergies: Allergies: Allergies Coded Allergies Type Severity Reaction Last Updated Verified Cephalexin Monohydrate Allergy Intermediate Rash 07/07/20 Yes Penicillins Allergy Intermediate Rash 07/07/20 Yes ampicillin Allergy Intermediate Rash 07/07/20 Yes sumatriptan Adverse Reaction Severe [place] 07/07/20 Yes sumatriptan succinate Adverse Reaction Severe 07/07/20 Yes Physical Exam: PE: Constitutional: Well developed, well nourished, no acute distress, non-toxic appearance. [] HENT: Normocephalic, atraumatic, bilateral external ears normal, nose normal. [] Eyes: PERRLA, conjunctiva normal, no discharge. [] Neck: No rigidity, supple, no stridor. [] Cardiovascular: Regular rate and rhythm, brisk cap refill [] Lungs & Thorax: Non labored symmetric respirations, no tachypnea or respiratory distress [] Abdomen: Soft, nondistended mild generalized tenderness palpation no guarding. Skin: Warm, dry, no erythema, no rash. [] Back: Unremarkable Extremities: No deformities, range of motion grossly intact, no lower extremity edema [] Neurologic: Alert and oriented X 3, no focal deficits noted. [] Psychologic: Affect normal, judgement normal, mood normal. [] Current Patient Data: Vital Signs: Vital Signs Date Time Temp Pulse Resp B/P (MAP) Pulse Ox O2 Delivery O2 Flow Rate FiO2 10/16/21 21:00 98.0 97 18 148/93 (111 98 EKG: EKG: Sinus rhythm, heart rate 89 bpm, left axis deviation, diffuse T wave flattening. No STEMI [] Radiology/Procedures: Radiology/Procedures: [address] [address] IMAGING REPORT Signed PATIENT: JINNY MUKHERJEE DACCOUNT: [id number] : 1960 LOCATION: ER AGE: 61 SEX: F EXAM STATUS: REG ER ORD. PHYSICIAN: ORALIA KEENAN MD REASON: vomiting, HX GASTROPARESIS PROCEDURE: ACUTE ABDOMEN SERIES Study: XR ABDOMEN COMP ACUTE Indication: Gastroparesis. Comparison: CT abdomen/pelvis 04/08/2021 Findings: Left chest wall single-lead AICD. No focal airspace infiltrate, pleural effusion or pneumothorax. The cardiomediastinal silhouette is within normal limits for size. The bowel gas pattern is nonobstructive. No significant volume well-formed colonic stool. Lower thoracic dextrocurvature. The bones appear osteopenic. Impression: Nonobstructive bowel gas pattern. No acute radiographic abnormality of the chest. Electronically signed by: RUTHANN CARRIZALES MD (10/16/2021 11:52 PM) [id number] DICTATED AND SIGNED BY: RUTHANN CARRIZALES MD DATE: 10/16/21 0591 CC: ORALIA KEENAN MD; STACY GATES MD ~MTH0 0 [] Heart Score: C/O Chest Pain: No Risk Factors: Risk Factors: DM, Current or recent (<one month) smoker, HTN, HLP, family history of CAD, obesity. Risk Scores: Score 0 - 3: 2.5% MACE over next 6 weeks - Discharge Home Score 4 - 6: 20.3% MACE over next 6 weeks - Admit for Clinical Observation Score 7 - 10: 72.7% MACE over next 6 weeks - Early Invasive Strategies Course & Med Decision Making: Course & Med Decision Making Pertinent Labs and Imaging studies reviewed. (See chart for details) [] Dragon Disclaimer: Dragon Disclaimer: This electronic medical record was generated, in whole or in part, using a voice recognition dictation system. Departure Departure: Impression: Primary Impression: Nausea & vomiting Additional Impressions: Dehydration Hypokalemia Disposition: ADMITTED INPATIENT Admitting Physician: Stacy Gates Condition: STABLE Referrals: STACY GATES MD (PCP) ORALIA KEENAN MD Oct 16, 2021 21:47
[2021-10-16 22:44] LABS: BASO # 0.1 x10^3/uL (0.0-0.2); BASO % 1 % (0-3); EOS # 0.2 x10^3/uL (0.0-0.7); EOS % 2 % (0-3); HEMATOCRIT 43.1 % (36.0-47.0); HEMOGLOBIN 14.6 g/dL (12.0-15.5); LYMPH # 2.5 x10^3/uL (1.0-4.8); LYMPH % 23 % (24-48); MEAN CORPUSCULAR HEMOGLOBIN 33 pg (25-35); MEAN CORPUSCULAR HGB CONC 34 g/dL (31-37); MEAN CORPUSCULAR VOLUME 97 fL (79-100); MONO % 10 % (0-9); NEUT # 7.1 x10^3uL (1.8-7.7); NEUT % 65 % (31-73); PLATELET COUNT 336 x10^3/uL (140-400); RED BLOOD COUNT 4.43 x10^6/uL (3.50-5.40); RED CELL DISTRIBUTION WIDTH 16.5 % (11.5-14.5); WHITE BLOOD COUNT 10.9 x10^3/uL (4.0-11.0)
[2021-10-16 22:50] LABS: BACTERIA,URINE 0 /HPF (0-FEW); BILIRUBIN,URINE SMALL (NEG); CLARITY,URINE CLEAR; COLOR,URINE YELLOW; GLUCOSE,URINE NEG (NEG); NITRITE,URINE NEG (NEG); SQUAMOUS EPITHELIAL CELL,UR FEW /LPF; UROBILINOGEN,URINE 0.2 mg/dL (0.2 mg/dL)
[2021-10-16 22:54] LABS: ALBUMIN 4.2 g/dL (3.4-5.0); ALBUMIN/GLOBULIN RATIO 1.1 (1.0-1.7); CALCIUM 9.4 mg/dL (8.5-10.1); CREATININE 1.4 mg/dL (0.6-1.0); GFR 46.4; TOTAL BILIRUBIN 0.3 mg/dL (0.2-1.0)
[2021-10-16 22:59] LABS: POTASSIUM 2.5 mmol/L (3.5-5.1)
[2021-10-16] MEDS ORDERED: POTASSIUM CHLORIDE 20 MEQ TABLET.ER. PO ONE (23:00)
[2021-10-16 23:15] LABS: MAGNESIUM 2.5 mg/dL (1.8-2.4); PHOSPHORUS 3.3 mg/dL (2.6-4.7)
[2021-10-16] MEDS ORDERED: ONDANSETRON PF 4 MG/2 ML VIAL. IVP PRN (23:15)
[2021-10-16] MEDS ORDERED: ACETAMINOPHEN 325 MG TABLET PO PRN (23:15)
[2021-10-16] MEDS ORDERED: IV NORMAL SALINE 1,000ML 1,000 ML IV SCH (23:15)
[2021-10-16] MEDS ORDERED: ONDANSETRON PF 4 MG/2 ML VIAL. IVP ONE (23:15)
[2021-10-16] MEDS: POTASSIUM CHLORIDE 10MEQ 100 ML IV SCH (23:43)
--- NOTE | 2021-10-16 23:54 | RAD ---
Study: XR ABDOMEN COMP ACUTE Indication: Gastroparesis. Comparison: CT abdomen/pelvis 04/08/2021 Findings: Left chest wall single-lead AICD. No focal airspace infiltrate, pleural effusion or pneumothorax. The cardiomediastinal silhouette is within normal limits for size. The bowel gas pattern is nonobstructive. No significant volume well-formed colonic stool. Lower thoracic dextrocurvature. The bones appear osteopenic. Impression: Nonobstructive bowel gas pattern. No acute radiographic abnormality of the chest. Electronically signed by: RUTHANN CARRIZALES MD (10/16/2021 11:52 PM) [id number]
--- NOTE | 2021-10-16 23:57 | EKG ---
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
[2021-10-17] MEDS: POTASSIUM CHLORIDE 10MEQ 100 ML IV SCH ×5 (00:46→05:15)
[2021-10-17] MEDS ORDERED: POTASSIUM CHLORIDE 20MEQ 100 ML IV SCH (02:00)
[2021-10-17 06:49] LABS: GFR 68.4; POTASSIUM 3.3 mmol/L (3.5-5.1)
[2021-10-17] MEDS ORDERED: PROCHLORPERAZINE 10 MG/2 ML VIAL. IV ONE (07:15)
[2021-10-17 07:25] VITALS: BP 100/54
== END 2021-10-17 07:34 | disposition home or self-care (01) ==
LOC: ER 21:00
DX: E86.0 Dehydration (principal); E87.6 Hypokalemia; Z20.822 Contact with and (suspected) exposure to COVID-19
CPT/HCPCS: 36415; 74022; 80048; 80053; 81001; 83605; 83690; 83735; 84100; 85025; 87426; 93005; 96361; 96365; 96366; 96372; 96375; 96376; 99285; C9803; J0780; J2405; J3010; J3480; J7030; U0003

== ENCOUNTER 2021-11-05 22:20 | Emergency (ER) | payer MEDICARE ==
[~2021-11-05] VITALS: Ht 180.3 cm; Wt 88.6 kg
[2021-11-05 22:33] VITALS: BP 135/54
--- NOTE | 2021-11-05 22:40 | PHYS DOC ---
Past History Past Medical History: CHF, [place], Migraines, Stroke Additional Past Medical Histor: gastroparesis, degenerative disc d/o (neck), defibrillator Past Surgical History: Hysterectomy, Other Additional Past Surgical Histo: cardiac stents x 3; defib Smoking: Non-smoker Alcohol Use: None Drug Use: None Adult General Chief Complaint Chief Complaint: NAUSEA/VOMITING/DIARRHEA HPI HPI Patient is a 61-year-old female with a past medical history of chronic nausea and vomiting and newly diagnosed nondiabetic gastroparesis who presents with nausea vomiting today. States that she had several episodes of nonbloody nonbilious emesis. States she is taken her Zofran and Phenergan that she has at home with a little relief. States that it last for couple hours but then comes back. Denies any recent traumas, travels, illnesses, fevers, chest pain, shortness of breath, diarrhea. Denies any dysuria, hematuria or blood in the stool. Denies any alcohol or drug use. Denies any Covid/flu/cold symptoms. Review of Systems Review of Systems Review of systems otherwise unremarkable except noted in HPI Allergies Allergies Allergies Coded Allergies Type Severity Reaction Last Updated Verified Cephalexin Monohydrate Allergy Intermediate Rash 11/05/21 Yes Penicillins Allergy Intermediate Rash 11/05/21 Yes ampicillin Allergy Intermediate Rash 11/05/21 Yes sumatriptan Adverse Reaction Severe [place] 11/05/21 Yes sumatriptan succinate Adverse Reaction Severe 11/05/21 Yes Physical Exam Physical Exam Constitutional: Well developed, well nourished, no acute distress, non-toxic appearance. [] HENT: Normocephalic, atraumatic, bilateral external ears normal, oropharynx moist, no oral exudates, nose normal. [] Eyes: conjunctiva normal, no discharge. [] Neck: Normal range of motion, no tenderness, supple, no stridor. [] Cardiovascular:Heart rate regular rhythm, no murmur [] Lungs & Thorax: Bilateral breath sounds clear to auscultation [] Abdomen: soft, no tenderness, no masses, no pulsatile masses. [] Skin: Warm, dry, no erythema, no rash. [] Back: no CVA tenderness. [] Extremities: No tenderness, no cyanosis, no clubbing, ROM intact, no edema. [] Neurologic: Alert and oriented X 3, normal motor function, normal sensory function, no focal deficits noted. [] Psychologic: Affect normal, judgement normal, mood normal. [] EKG EKG [] Radiology/Procedures Radiology/Procedures [] Heart Score C/O Chest Pain: No Risk Factors: Risk Factors: DM, Current or recent (<one month) smoker, HTN, HLP, family history of CAD, obesity. Risk Scores: Risk Factors: DM, Current or recent (<one month) smoker, HTN, HLP, family history of CAD, obesity. Course & Med Decision Making Course & Med Decision Making Patient is a 61-year-old female who presents with nausea and vomiting Vital signs notable for bradycardia. Physical exam noted above. Patient given antiemetics. On reassessment patient stated that antiemetics worked very well and would like to have some of them to take home as her Zofran doesn't work all the time and her Phenergan only works for an hour or 2. Discussed all findings with patient. Discussed the use of Reglan at home. A dvised to follow-up in the morning with primary care physician and discussed the use of this for nausea and vomiting as well as gastroparesis. Gave return precautions to the ED. Patient grateful, verbalized understanding and agree with plan of discharge. [] Dragon Disclaimer Dragon Disclaimer This electronic medical record was generated, in whole or in part, using a voice recognition dictation system. Departure Departure: Impression: Primary Impression: Nausea & vomiting Disposition: 01 HOME / SELF CARE / HOMELESS Condition: GOOD Referrals: STACY GATES MD (PCP) Patient Instructions: Nausea and Vomiting Additional Instructions: Thank you for coming into the emergency department tonight and allowing us to take care of you. Please read the attached information carefully to go back over some of the things we discussed. Please use your nausea medicine as prescribed. It is very important you follow-up in the morning with your primary care physician to discuss your ED visit and continued use of your Reglan. If you do use your Reglan for nausea please use only your Reglan and do not use your other medicines given to you at home for nausea such as your ondansetron or Phener zora. Please come back with new or concerning symptoms as discussed. Scripts Metoclopramide Hcl (REGLAN) 10 Mg Tablet 1 TAB PO BID for N/V for 7 Days, #14 TAB 0 Refills before food and bedtime Prov: BUTCH HOUGH MD 11/06/21 BUTCH HOUGH MD Nov 05, 2021 22:40
[2021-11-05] MEDS ORDERED: diphenhydrAMINE HCL 25 MG CAPSULE PO ONE (23:00)
[2021-11-05] MEDS ORDERED: METOCLOPRAMIDE HCL 10 MG/2 ML VIAL. IM ONE (23:00)
[2021-11-06] MEDS ORDERED: METO10TA81 PO (00:25)
[2021-11-06] MEDS ORDERED: MIDAZOLAM HCL PF 5 MG/5 ML VIAL. IM ONE (00:30)
== END 2021-11-06 00:39 | disposition home or self-care (01) ==
LOC: ER 22:20
DX: R11.2 Nausea with vomiting, unspecified (principal); I50.9 Heart failure, unspecified; I25.2 Old myocardial infarction; G43.909 Migraine, unspecified, not intractable, without status migrainosus; Z86.73 Personal history of transient ischemic attack (TIA), and cerebral infarction without residual deficits; Z88.1 Allergy status to other antibiotic agents; Z88.8 Allergy status to other drugs, medicaments and biological substances
CPT/HCPCS: 96372; 99284; J2250; J2765; Q0163

== ENCOUNTER → 2021-11-10 | Outpatient (CLI) | payer MEDICARE ==
[2021-11-05 22:33] VITALS: BP 135/54
[~2021-11-10] MED LIST changes: +METO10TA81 PO
--- NOTE | 2021-11-10 14:45 | RAD ---
Gastric Emptying Study 11/10/2021 Indication: Reason: NONDIABETIC GASTROPARESIS / Procedure: Anterior and posterior projection static images are obtained over the stomach following or al administration of 2 mCi of 99 M technetium sulfur colloid in a solid . Time points include an imme diate baseline, and 1, 2, 3, and 4 hours post ingestion. Findings: There is progressive emptying of the stomach on sequential images. Percentage retention at... One hour is 54% (normal 34.8-91%). Two hours 12 % (normal 2.7-60%). Three hours 1% (normal 0.5-28%). Four hours 0% (normal 0-10%). Impression: Normal 4 hour protocol gastric emptying study. Consensus Recommendations for Gastric Emptying Scintigraphy: A Joint Report of the [place] Neurogast ro[employer] Society and the Society of Nuclear Medicine: J. Nucl. Med. Technol. January 07 vol. 36 no. 1 44-54 Grading for severity of delayed GE based on the 4-h value: grade 1 (mild): 11?20% retention at 4 h grade 2 (moderate): 21?35% retention at 4 h grade 3 (severe): 36?50% retention at 4 h grade 4 (very severe): >50% retention at 4 h. Electronically signed by: Torsten Izquierdo MD (11/10/2021 2:42 PM) [id number]
== END ==
LOC: NM 07:40
PROVIDERS: ATTEND Internal Medicine Gastroenterology
DX: K31.84 Gastroparesis (principal)
CPT/HCPCS: 78264; A9541

== ENCOUNTER 2021-11-11 19:06 | Inpatient (IN) | payer MEDICARE ==
[~2021-11-11] VITALS: Ht 180.3 cm; Wt 84.0 kg
[2021-11-11] MEDS ORDERED: ONDANSETRON ODT 4 MG TAB.RAPDIS PO ONE (19:30)
[2021-11-11] MEDS ORDERED: IV NORMAL SALINE 1,000ML 1,000 ML IV ONE (21:45)
[2021-11-11] MEDS ORDERED: PROCHLORPERAZINE 10 MG/2 ML VIAL. IV ONE (21:45)
--- NOTE | 2021-11-11 21:57 | PHYS DOC ---
Past History Past Medical History: CHF, [place], Migraines, Stroke Additional Past Medical Histor: gastroparesis, degenerative disc d/o (neck), defibrillator (KARRIE FORTE) Past Surgical History: Hysterectomy, Other Additional Past Surgical Histo: cardiac stents x 3; defib (KARRIE FORTE) Smoking: Non-smoker Alcohol Use: None Drug Use: None (KARRIE FORTE) General Adult EDM: Chief Complaint: NAUSEA/VOMITING/DIARRHEA HPI: HPI: Patient is a 61 year old female with history of gastroparesis who presents to3- day history with nausea and vomiting. Patient reports she has vomited 67 times today and has associated epigastric and periumbilical abdominal pain. Patient reports she had a gastric emptying study done yesterday, and she no longer has gastroparesis. However, the Zofran and Reglan for which she has prescriptions are not improving her symptoms. Patient has not been able to eat any food and is no longer able to keep down sips of clear fluids. She states that her GI doctor noted a lesion on one of her ovaries. She has a follow-up appointment with her braille translator 2 days from today. Patient denies bloody emesis, diarrhea, constipation or bloody stool. She has no other complaints at this time. (KARRIE FORTE) Review of Systems: Review of Systems: Constitutional: Denies fever or chills Eyes: Denies change in visual acuity or visual field deficits HENT: Denies nasal congestion or sore throat Respiratory: Denies cough or shortness of breath Cardiovascular: Denies chest pain or edema GI: See HPI : Denies dysuria or hematuria Musculoskeletal: Denies back pain or joint pain Integument: Denies rash or other skin lesions Neurologic: Denies headache, focal weakness or sensory changes (KARRIE FORTE) Current Medications: Current Meds: Current Medications Medications (Trade) Dose Ordered Sig/Vannesa Start Time Stop Time Status Last Admin Dose Admin Ondansetron HCl (Zofran Odt) 4 mg 1X ONCE 11/11/21 19:30 11/11/21 21:40 DC Prochlorperazine Edisylate (Compazine) 10 mg 1X ONCE 11/11/21 21:45 11/11/21 21:46 DC Sodium Chloride 1,000 ml @ 1,000 mls/hr 1X ONCE 11/11/21 21:45 11/11/21 22:44 (KARRIE FORTE) Allergies: Allergies: Allergies Coded Allergies Type Severity Reaction Last Updated Verified Cephalexin Monohydrate Allergy Intermediate Rash 11/05/21 Yes Penicillins Allergy Intermediate Rash 11/05/21 Yes ampicillin Allergy Intermediate Rash 11/05/21 Yes sumatriptan Adverse Reaction Severe [place] 11/05/21 Yes sumatriptan succinate Adverse Reaction Severe 11/05/21 Yes (KARRIE FORTE) Physical Exam: PE: Constitutional: Well developed, well nourished, no acute distress, non-toxic appearance. HENT: Normocephalic, atraumatic, bilateral external ears without deformity or discharge, oropharynx moist, no oral exudates, nose without deformity or discharge. Eyes: EOMI, conjunctiva normal, no discharge. Cardiovascular: Heart rate regular rhythm, no murmur. Lungs & Thorax: Bilateral breath sounds clear to auscultation. Abdomen: Bowel sounds normal, soft, epigastric and periumbilical tenderness, no masses, no pulsatile masses. Skin: Warm, dry, no erythema, no rash. Back: No step-off, no tenderness, no CVA tenderness. (KARRIE FORTE) Current Patient Data: Vital Signs: Vital Signs Date Time Temp Pulse Resp B/P (MAP) Pulse Ox O2 Delivery O2 Flow Rate FiO2 11/11/21 20:47 99.1 89 18 121/60 (80) 98 (KARRIE FORTE) Heart Score: C/O Chest Pain: No (KARRIE FORTE) Course & Med Decision Making: Course & Med Decision Making Pertinent Labs and Imaging studies reviewed. (See chart for details) Patient is a 61-year-old female with history of gastroparesis and several abdom inal imaging studies in the past who presents with intractable nausea vomiting. She states that the only medication she has been given in the ER or in her gastrointestinal doctor's office in the past that has helped is Compazine. Work- up today will include labs, urinalysis. She'll be administered IV fluids and IV Compazine here in the department. Patient care transferred to Dr. Lopez waiting for reevaluation after medication administration. (KARRIE FORTE) Course & Med Decision Making The patient has had very difficult to control nausea and vomiting. She has been given several medications. Her potassium is very low at 2.3. We will have to replace it by IV as she cannot tolerate p.o. at this time. I will admit the bogdan gil to the hospital. I spoke with Dr. Gates and he has accepted the patient for admission. (BRIE LOPEZ DO) Dragon Disclaimer: Dragon Disclaimer: This electronic medical record was generated, in whole or in part, using a voice recognition dictation system. (KARRIE FORTE) Departure Departure: Impression: Primary Impression: Vomiting Additional Impression: Hypokalemia Disposition: ADMITTED INPATIENT Admitting Physician: Stacy Gates (BRIE LOPEZ DO) Condition: STABLE Referrals: STACY GATES MD (PCP) KARRIE FORTE Nov 11, 2021 21:57 BRIE LOPEZ DO Nov 12, 2021 02:20
[2021-11-11 22:06] LABS: BILIRUBIN,URINE SMALL (NEG); CLARITY,URINE CLEAR; COLOR,URINE AMBER; GLUCOSE,URINE NEG (NEG)
[2021-11-11 22:07] LABS: BACTERIA,URINE FEW /HPF (0-FEW); NITRITE,URINE NEG (NEG); SQUAMOUS EPITHELIAL CELL,UR MOD /LPF; UROBILINOGEN,URINE 0.2 mg/dL (0.2 mg/dL)
[2021-11-11 22:18] LABS: BASO # 0.1 x10^3/uL (0.0-0.2); BASO % 0 % (0-3); EOS % 0 % (0-3); HEMATOCRIT 42.5 % (36.0-47.0); LYMPH # 1.5 x10^3/uL (1.0-4.8); LYMPH % 8 % (24-48); MEAN CORPUSCULAR HEMOGLOBIN 33 pg (25-35); MEAN CORPUSCULAR HGB CONC 33 g/dL (31-37); MEAN CORPUSCULAR VOLUME 99 fL (79-100); MONO # 1.3 x10^3/uL (0.0-1.1); MONO % 7 % (0-9); NEUT # 15.8 x10^3uL (1.8-7.7); NEUT % 85 % (31-73); PLATELET COUNT 307 x10^3/uL (140-400); RED BLOOD COUNT 4.27 x10^6/uL (3.50-5.40); WHITE BLOOD COUNT 18.7 x10^3/uL (4.0-11.0)
[2021-11-11 22:28] LABS: ALBUMIN 3.6 g/dL (3.4-5.0); ALBUMIN/GLOBULIN RATIO 0.9 (1.0-1.7); CALCIUM 9.2 mg/dL (8.5-10.1); CREATININE 1.3 mg/dL (0.6-1.0); GFR 50.6; TOTAL BILIRUBIN 0.4 mg/dL (0.2-1.0); TOTAL PROTEIN 7.5 g/dL (6.4-8.2)
[2021-11-11 22:34] LABS: POTASSIUM 2.3 mmol/L (3.5-5.1)
[2021-11-11] MEDS ORDERED: METOCLOPRAMIDE HCL 10 MG/2 ML VIAL. IVP ONE (22:45)
[2021-11-11] MEDS ORDERED: ONDANSETRON PF 4 MG/2 ML VIAL. IVP ONE (22:45)
[2021-11-11] MEDS: POTASSIUM CHLORIDE 20MEQ 100 ML IV SCH (22:45)
[2021-11-11 22:48] LABS: % LYMPHS 10 % (24-48); % MONOS 5 % (0-10); % SEGS 85 % (35-66); PLT ESTIMATE ADEQUATE (ADEQUATE)
[2021-11-11 22:49] LABS: ANISOCYTOSIS SLIGHT
[2021-11-11] MEDS ORDERED: POTASSIUM BICARB 20 MEQ EFFERVESCENT TABLET. PO ONE (23:00)
[2021-11-12] MEDS: POTASSIUM CHLORIDE 20MEQ 100 ML IV SCH (02:07)
[2021-11-12] MEDS ORDERED: ONDANSETRON PF 4 MG/2 ML VIAL. IVP PRN (02:30)
[2021-11-12] MEDS ORDERED: PROMETHAZINE 25 MG TABLET. PO PRN (03:15)
[2021-11-12] MEDS ORDERED: PROCHLORPERAZINE 10 MG/2 ML VIAL. IV PRN (03:15)
--- NOTE | 2021-11-12 05:51 | NUR ---
PT ADMITTED TO [facility] VIA EMS ACCOMPANIED BY ER STAFF. PT AMBULATED INDEPENDENTLY FROM GURNEY TO BED W/O COMPLICATIONS. VS OBTAINED. BELONGINGS CHARTED. PT IS AOX4 AND DENIES ANY PAIN AT THIS TIME. PT GAVE THIS NURSE HOME MEDICATION LIST. MEDICATION LIST COPIED AND PLACED IN CHART. POC DISCUSSED W/ VERBALIZED UNDERSTANDING. CALL LIGHT IN REACH WILL CONTINUE TO MONITOR.
[2021-11-12 05:57] VITALS: BP 105/68
[2021-11-12 11:42] VITALS: BP 101/62
[2021-11-12] MEDS ORDERED: ELECTROLYTE (NON-ICU) PROTOCOL. MC PRN (12:15)
[2021-11-12] MEDS ORDERED: PANTOPRAZOLE 40 MG TABLET. PO ONE (13:15)
[2021-11-12] MEDS: IV NORMAL SALINE 1,000ML 1,000 ML IV SCH (13:15)
--- NOTE | 2021-11-12 13:54 | HP ---
DATE OF SERVICE: 11/12/2021 ADMIT DATE: 11/12/2021 HISTORY OF PRESENT ILLNESS: A 61-year-old female with problem with nausea, vomiting, abdominal pain, not able to keep anything down, had a white count of nearly 19,000. The patient was admitted for further evaluation. Her potassium was also low at 2.3. She was dehydrated, unable to keep fluids as well as solids down. The patient otherwise denied chest pain or shortness of breath. In any case, the patient was admitted for multiplicity of medical problems. She is being worked up by Dr. Bee for her GI problems. Has had a recent gastroparesis study, which was negative. The patient also complains of severe headaches that have been only controlled with Compazine and the use of some other anti-inflammatory drugs as well. The patient was admitted for such for IV fluids hydration, potassium replacement and continued workup. PAST MEDICAL HISTORY: He has had history of heart attack, angina, CHF, CAD, coronary stent placement, internal defibrillator, hypercholesterolemia, GERD, hysterectomy, kidney stones, depression. Influenza, pneumococcal and COVID vaccines up to date. FAMILY HISTORY: Positive for diabetes in the brother and father. Mother with heart attack, hypertension, angina, cardiovascular disease. ALLERGIES: KEFLEX, PENICILLINS, SUMATRIPTAN SUCCINATE. SOCIAL HISTORY: The patient denies smoking, alcohol or drug use. She is a FULL CODE. REVIEW OF SYSTEMS: She does have headaches with visual changes. Severe headaches do precipitate possibly nausea and nausea is precipitating the headaches. Denies any chest pain or shortness of breath presently. The patient otherwise denies any problems with her extremities. She does have nausea, vomiting, abdominal pain and the patient otherwise seems to be resting comfortably in that regard. PHYSICAL EXAMINATION: GENERAL: This is an ill-appearing -[place] female. VITAL SIGNS: Blood pressure 120/60, respirations 18, pulse 90. Running low-grade temperature of 99.1. HEENT: The patient's head was atraumatic, normocephalic. Eyes were PERRL. Mouth and throat were normal. NECK: Supple without JVD or thyromegaly. LUNGS: Diminished throughout, poor movement of air. CARDIOVASCULAR: Regular sinus rhythm, S1, S2, without murmur, rub, thrill, or extra heart sounds. ABDOMEN: Soft, nontender. No rebound or guarding except in the epigastric area, there is tenderness. No mass was noted, but there is slight guarding, but no rebounding in the epigastric area. The patient otherwise seems to be resting fairly comfortably. EXTREMITIES: Rest of the extremities were stable. NEUROLOGIC: Cranial nerves 2-12 are grossly intact minus the fact that she does have a severe headache with nausea and vomiting. LABORATORY DATA: The patient's labs as noted did show an elevated white count of approximately 18,000-19,000. Hemoglobin and hematocrit 14 and 42. Platelets are normal, no left shift was noted. The patient's chemistry 139, 2.3, 15 and 1.3. Glucose 100. The patient otherwise is resting comfortably. Her lipase was low at 62. UA did show 5-10 whites and 3-5 reds. Serology so far COVID negative. The patient will be monitored carefully, make further evaluation. IV fluids are being given as well as antiemetics such as Compazine. The patient will continue to be monitored carefully, make further evaluation. Potassium replacement and make further assessment on that. IMPRESSION: Severe nausea, vomiting, dehydration, severe hypokalemia, abdominal discomfort. PLAN: As above. LATASHA/FRANCA/STALIN DR: LATASHA/jessika TID: [id number]
[2021-11-12 15:34] LABS: CALCIUM 8.4 mg/dL (8.5-10.1); GFR 68.4
[2021-11-12 15:40] LABS: POTASSIUM 2.6 mmol/L (3.5-5.1)
[2021-11-12] MEDS: POTASSIUM CHLORIDE 10MEQ 100 ML IV SCH ×4 (15:45→20:02)
[2021-11-12 15:50] VITALS: BP 108/69
--- NOTE | 2021-11-12 16:54 | RAD ---
EXAMINATION: CT head without IV contrast. INDICATION:61 years, Female, headache. COMPARISON: 10/11/2021 TECHNIQUE: Spiral acquisition of contiguous images from the skull base to the vertex were obtained. S agittal and coronal 2D reformatted series were provided by the technologist. Soft tissue and bone win werner algorithms were reviewed. Exposure: One or more of the following individualized dose reduction techniques were utilized for thi s examination: 1. Automated exposure control 2. Adjustment of the mA and/or kV according to patient size 3. Use of iterative reconstruction technique. FINDINGS: Neither mass, midline shift, intracranial hemorrhage, acute/subacute ischemic changes, nor extraaxial fluid collections are seen. The brain parenchyma is normal in appearance.The ventricles are normal i n size. The paranasal sinuses, mastoid air cells, and middle ears are clear.The orbital contents appear withi n normal limits. IMPRESSION: No evidence of acute intracranial abnormality. Electronically signed by: Lashell Mars MD (11/12/2021 4:52 PM) [facility]
--- NOTE | 2021-11-12 18:11 | NUR ---
Nursing note PT in bed, reports nausea and vomiting. Medications administered. Report gotten for the PT on a K+ level of 2.6. The doctor was called and the PT was administered a Potassium Chloride drip. Potassium administered, PT reported Pain at the infusion side, an ice pack was provided was provided to the PT to aid with the pain. Medication infusing, PT verbalized no pain or discomfort. Bed low, call light within reach will continue to monitor.
[2021-11-12 19:00] VITALS: BP 101/69
[2021-11-12] MEDS: PROCHLORPERAZINE 10 MG/2 ML VIAL. IM PRN (22:31)
[2021-11-13] MEDS: IV NORMAL SALINE 1,000ML 1,000 ML IV SCH ×2 (02:35→16:10)
[2021-11-13] MEDS: PROCHLORPERAZINE 10 MG/2 ML VIAL. IM PRN ×2 (05:33→17:06)
[2021-11-13 05:59] VITALS: BP 103/64
[2021-11-13] MEDS: PANTOPRAZOLE 40 MG TABLET. PO SCH (07:30)
[2021-11-13 08:07] LABS: CALCIUM 8.2 mg/dL (8.5-10.1); CREATININE 0.9 mg/dL (0.6-1.0); GFR 77.3
[2021-11-13 08:10] LABS: BASO % 0 % (0-3); EOS # 0.2 x10^3/uL (0.0-0.7); EOS % 3 % (0-3); HEMATOCRIT 36.6 % (36.0-47.0); HEMOGLOBIN 12.1 g/dL (12.0-15.5); LYMPH # 2.2 x10^3/uL (1.0-4.8); LYMPH % 25 % (24-48); MEAN CORPUSCULAR HEMOGLOBIN 33 pg (25-35); MEAN CORPUSCULAR HGB CONC 33 g/dL (31-37); MEAN CORPUSCULAR VOLUME 100 fL (79-100); MONO # 0.8 x10^3/uL (0.0-1.1); MONO % 9 % (0-9); NEUT # 5.7 x10^3uL (1.8-7.7); NEUT % 63 % (31-73); PLATELET COUNT 258 x10^3/uL (140-400); RED BLOOD COUNT 3.64 x10^6/uL (3.50-5.40); RED CELL DISTRIBUTION WIDTH 16.1 % (11.5-14.5); WHITE BLOOD COUNT 8.9 x10^3/uL (4.0-11.0)
[2021-11-13 08:17] LABS: POTASSIUM 2.8 mmol/L (3.5-5.1)
--- NOTE | 2021-11-13 08:25 | RAD ---
Ultrasound of the abdomen 11/13/2021 CLINICAL HISTORY: Abdominal pain and nausea and vomiting. TECHNIQUE: A real-time ultrasound examination of the abdomen was performed. Multiple images were obta ined. FINDINGS: Comparison is made to a CT scan of the abdomen dated 04/08/2021. The gallbladder is distended. No gallstones are visualized. The gallbladder wall is not thickened. Th e patient is tender with palpation of the ultrasound transducer over the gallbladder (positive sonogr aphic Elba sign). No pericholecystic fluid is seen. The common bile duct measures 5 mm in diameter which is within normal limits. The liver is mildly enlarged measuring 20.5 cm in length. The spleen, visualized portions of the panc reas and kidneys are within normal limits. The abdominal aorta and inferior vena cava are not well-visualized due to overlying bowel gas. No manpreet e fluid is seen. IMPRESSION: 1. Gallbladder distention. 2. Mild hepatomegaly. Electronically signed by: Alex Brewer MD (11/13/2021 8:23 AM) [id number]
[2021-11-13] MEDS: POTASSIUM CHLORIDE 10MEQ 100 ML IV SCH ×4 (08:30→11:30)
[2021-11-13 11:01] VITALS: BP 105/64
--- NOTE | 2021-11-13 11:01 | NUR ---
Nursing note PT had a critical result of potassium, the doctor was notified and the PT was started on potassium IV infusion. PT had an abdominal ultrasound this morning, morning assessments done and documented. PT in bed, IV infusing, bed low call light within reach. Will continue to monitor.
[2021-11-13 15:45] VITALS: BP 121/63
--- NOTE | 2021-11-13 15:49 | RAD ---
INDICATION: Reason: constant nausea / Spl. Instructions: / History: COMPARISON: Ultrasound from same day TECHNIQUE: 5mCi of Tc99m Choletec was injected intravenously followed by scintigraphic images of the abdomen. FINDINGS: Appropriate radiotracer clearance from the blood pool. Appropriate radiotracer excretion into the biliary tree. Prompt passage of contrast into the small bowel. Visualization of the gallbladder prior to the 60 minute time point. IMPRESSION: * No scintigraphic evidence of acute cholecystitis or high grade biliary obstruction. Electronically signed by: Umair Butler MD (11/13/2021 3:47 PM) [id number]
--- NOTE | 2021-11-13 16:42 | RAD ---
AP and Lateral Views of the Chest 11/13/2021 3:50 PM Indication: Reason: abd pain nuaea sob and elevated w bc Comparison: Chest radiograph July 07, 2020 Findings: There is no pneumothorax or pleural effusion. Heart size is normal. There is a single lead pacemaking/ICD device from a left subclavian approach. There is left basilar/retrocardiac linear opac ification. Impression: Left basilar linear opacity. The appearance favors atelectasis or scarring. Early infiltr ate not excluded. Consider radiographic follow-up. Electronically signed by: Torsten Izquierdo MD (11/13/2021 4:40 PM) [id number]
[2021-11-13 19:23] LABS: THYROID STIM HORMONE (TSH) 0.594 uIU/mL (0.358-3.740)
[2021-11-13 19:25] VITALS: BP 100/57
[2021-11-13] MEDS: METOCLOPRAMIDE HCL 10 MG/2 ML VIAL. IVP PRN (20:16)
--- NOTE | 2021-11-14 00:44 | PN ---
DATE: 11/13/2021 SUBJECTIVE: A 61-year-old female in with severe hypokalemia as well as severe abdominal pain with nausea and vomiting. The patient had an abdominal ultrasound as well as a PIPIDA scan, which both were negative. The patient had a normal ejection fraction apparently at the gallbladder. In any case, the patient still has some nausea and vomiting. Potassium has come up slightly; it was down as low as 2.3, up to 2.8. She is getting IV potassium, since the oral potassium was insufficient. Culture of the urine demonstrated that it was negative. The patient is still having some chronic nausea. OBJECTIVE: VITAL SIGNS: Blood pressure 120/60, respiratory rate 18, pulse 100, afebrile, 93% on room air. GENERAL: The patient is alert and oriented. LUNGS: Clear. CARDIOVASCULAR: Stable. ABDOMEN: Soft, diffuse tenderness in the epigastric area. No rebound or guarding. Positive bowel sounds, no hepatosplenomegaly noted. EXTREMITIES: No clubbing, cyanosis, nor edema. LABORATORY DATA: Labs as discussed. IMPRESSION: Hypokalemia, abdominal discomfort with chronic nausea, vomiting, chronic headache. PLAN: Continue workup and hydration and hopefully get her potassium up and hopefully ready for evaluation with Dr. Mckeon, noted database security administrator. LATASHA/RACHEAL DR: LATASHA/jessika TID: [id number]
[2021-11-14] MEDS: IV NORMAL SALINE 1,000ML 1,000 ML IV SCH (05:50)
[2021-11-14] MEDS: PROCHLORPERAZINE 10 MG/2 ML VIAL. IM PRN ×2 (05:50→13:16)
[2021-11-14 06:10] VITALS: BP 115/77
[2021-11-14 06:23] LABS: CALCIUM 8.1 mg/dL (8.5-10.1); CREATININE 0.9 mg/dL (0.6-1.0); GFR 77.3; POTASSIUM 3.2 mmol/L (3.5-5.1)
[2021-11-14] MEDS: PANTOPRAZOLE 40 MG TABLET. PO SCH (08:02)
[2021-11-14] MEDS: METOCLOPRAMIDE HCL 10 MG/2 ML VIAL. IVP PRN (08:10)
[2021-11-14 11:22] VITALS: BP 104/62
--- NOTE | 2021-11-14 12:19 | NUR ---
NURS NOTE PT MEDICATIONS PASSED AND MORNING ASSESSMENT COMPLETE. PT STATES HAVING MILD HEADACHE AND NAUSEA AFTER EATING MEALS. PRN MEDICATION GIVEN. ALL PT NEEDS MET AT THIS TIME. WILL CONTINUE TO MONITOR.
--- NOTE | 2021-11-14 15:43 | NUR ---
DISCHARGE NOTE PT TELE AND IV DC'D. DISCHARGE INSTRUCTIONS AND EDUCATION APPLIED AND UNDERSTOOD PER PT CONFIRMATION. PT AMBULATED TO WHEELCHAIR AND TAKEN OUT IN WHEELCHAIR TO BY THIS RN. PT A&OX4 AND FREE OF PAIN AND NAUSEA. PT STATES SHE WILL BE FOLLOWING UP WITH DR GATES IN LESS THAN 7 DAYS. PT LEFT WITH .
--- NOTE | 2021-12-07 22:28 | DS ---
DATE OF DISCHARGE: 11/14/2021 HOSPITAL COURSE: A 61-year-old female came in with severe nausea and vomiting. The patient was unable to keep anything down. She had an elevated white count of 19,000. Potassium was also low at 2.3. She was markedly dehydrated. As a result of this, the patient was admitted to the hospital for further evaluation. She complained of severe abdominal pain in the right upper quadrant area. Scans were taken including a PIPIDA scan that showed no biliary obstruction. An ultrasound of the abdomen showed gallbladder distention and mild hepatosplenomegaly, but nothing obvious there. The labs showed a white count of 18,000, came down to ____. On her chemistries, 2.8 potassium went back up to 3.2. Her vitamin D level was low at 22. Her cortisol levels were high at 21. Lipase was low. Lipids were normal. Triglycerides 150. The patient made good progress. She was COVID negative. Her urine culture was nonspecific. IMPRESSION: Nausea, vomiting, dehydration, hypokalemia, abdominal pain, elevated cortisol levels, vitamin D deficiency. The patient was discharged home on Compazine and she will follow up with . ____ her GI specialist as an outpatient for further evaluation. She will be kept on a clear liquid diet. LATASHA/REFUGIO/ALFONSO DR: LATASHA/jessika TID: [id number]
== END 2021-11-14 15:46 | disposition home or self-care (01) | DRG 391 ==
LOC: ER 19:06 → ER HOLD 11-12 03:59 → 1 SOUTH 11-12 04:39
PROVIDERS: ADMIT Family Medicine; ATTEND Family Medicine
DX: K31.84 Gastroparesis (principal); N17.0 Acute kidney failure with tubular necrosis; E86.0 Dehydration; E87.6 Hypokalemia; E78.00 Pure hypercholesterolemia, unspecified; I25.10 Atherosclerotic heart disease of native coronary artery without angina pectoris; I25.2 Old myocardial infarction; I50.9 Heart failure, unspecified; Z82.49 Family history of ischemic heart disease and other diseases of the circulatory system; Z83.3 Family history of diabetes mellitus; Z86.73 Personal history of transient ischemic attack (TIA), and cerebral infarction without residual deficits; Z87.442 Personal history of urinary calculi; Z90.710 Acquired absence of both cervix and uterus; Z95.5 Presence of coronary angioplasty implant and graft; F32.A Depression, unspecified; G43.909 Migraine, unspecified, not intractable, without status migrainosus; K21.9 Gastro-esophageal reflux disease without esophagitis; E55.9 Vitamin D deficiency, unspecified; K82.8 Other specified diseases of gallbladder; Z20.822 Contact with and (suspected) exposure to COVID-19
CPT/HCPCS: 36415; 70450; 71046; 76700; 78226; 78264; 80048; 80053; 80061; 81001; 82306; 82533; 83690; 84443; 85007; 85025; 85379; 87086; 87426; 96374; 96375; A9537; A9541; J0780; J2405; J2765; J3480; U0003; 99285-25; J7030

== ENCOUNTER 2021-11-27 22:09 | Emergency (ER) | payer MEDICARE ==
[~2021-11-27] VITALS: Ht 180.3 cm; Wt 83.4 kg
--- NOTE | 2021-11-27 22:52 | PHYS DOC ---
Past History Past Medical History: CHF, [place], Migraines, Stroke Additional Past Medical Histor: gastroparesis, degenerative disc d/o (neck), defibrillator Past Surgical History: Hysterectomy, Other Additional Past Surgical Histo: cardiac stents x 3; defib Smoking: Non-smoker Alcohol Use: None Drug Use: None Adult General HPI HPI Patient is a 61-year-old female a past medical history of migraines and chronic nausea who presents with a migraine and nausea. States that earlier today she began to have a whole head, dull headache, 4 out of 10 with no radiation that is similar to her usual ones and then shortly after began to have some nausea. Shortly after that began to have some nonbloody nonbilious emesis and has had 5 episodes of this with last one about an hour ago. States she gets this a couple of times a month. [facility] she did see her primary care physician this morning and got a shot of Phenergan which did seem to help but wore off in a couple hours. [facility] she has had MRIs, CAT scans, EGDs and colonoscopies. The only thing that has come up is an inflamed gallbladder but did not have any stones or sludge. [facility] she has not had a HIDA scan. [facility] she has an appointment on Wednesday with her GI specialist. Review of Systems Review of Systems Review of systems otherwise unremarkable except noted in HPI Allergies Allergies Allergies Coded Allergies Type Severity Reaction Last Updated Verified Cephalexin Monohydrate Allergy Intermediate Rash 11/05/21 Yes Penicillins Allergy Intermediate Rash 11/05/21 Yes ampicillin Allergy Intermediate Rash 11/05/21 Yes sumatriptan Adverse Reaction Severe KS 11/05/21 Yes sumatriptan succinate Adverse Reaction Severe 11/05/21 Yes Physical Exam Physical Exam Constitutional: Well developed, well nourished, no acute distress, non-toxic appearance. [] HENT: Normocephalic, atraumatic, bilateral external ears normal, oropharynx moist, no oral exudates, nose normal. [] Eyes: conjunctiva normal, no discharge. [] Neck: Normal range of motion, no tenderness, supple, no stridor. [] Cardiovascular:Heart rate regular rhythm, no murmur [] Lungs & Thorax: Bilateral breath sounds clear to auscultation [] Abdomen: soft, no tenderness, no masses, no pulsatile masses. [] Skin: Warm, dry, no erythema, no rash. [] Back: no CVA tenderness. [] Extremities: No tenderness, no cyanosis, no clubbing, ROM intact, no edema. [] Neurologic: Alert and oriented X 3, no focal deficits noted. [] Psychologic: Affect normal, judgement normal, mood normal. [] EKG EKG [] Radiology/Procedures Radiology/Procedures [] Heart Score C/O Chest Pain: No Risk Factors: Risk Factors: DM, Current or recent (<one month) smoker, HTN, HLP, family history of CAD, obesity. Risk Scores: Risk Factors: DM, Current or recent (<one month) smoker, HTN, HLP, family history of CAD, obesity. Course & Med Decision Making Course & Med Decision Making Patient is a 61-year-old female that presents with self-reported migraine and nausea for about 6 hours Vital signs notable for tachycardia. Physical exam noted above. Put patient on the monitor. Given headache and antiemetics. Given p.o. water. Had discussions about symptom treatment at home and further ideas for evaluation and treatment include HIDA scan. Advised to call GI specialist in the morning to see if they can do a quick referral get a HIDA scan tomorrow and time for their appointment on Wednesday. Advised to call primary care physician in the morning as well to update on ED visit. Gave strict return precautions to the ED. Family grateful, verbalized understanding and agreed with plan of discharge. [] Dragon Disclaimer Dragon Disclaimer This electronic medical record was generated, in whole or in part, using a voice recognition dictation system. Departure Departure: Impression: Primary Impression: Migraine headache Additional Impression: Nausea & vomiting Disposition: 01 HOME / SELF CARE / HOMELESS Condition: GOOD Referrals: STACY GATES MD (PCP) Patient Instructions: Migraine Headache, Nausea and Vomiting Additional Instructions: Thank you for coming into the emergency department tonight and allowing us to take care of you. Please read the attached information carefully to go over things we discussed. Please take all your medications at home as prescribed. Please be sure to drink plenty of fluids. As we discussed please call your GI specialist in the morning to discuss a referral for HIDA scan and see if you can get that done tomorrow for your appointment on Wednesday. Until then please keep your diet light and clear. These are things like chicken soup Gatorade and some saltine crackers. Also keep the amount that you eat very small and eat something small every couple of hours just in case it is your gallbladder. Stay away from alcohol and coffee as well. Please call your primary care physician in the morning to to update on your ED visit. Please come back with new or concerning symptoms as we discussed. Scripts Lorazepam (ATIVAN) 1 Mg Tablet 1 TAB PO BID for N/V MDD 2 Tablet(s) for 10 Days, #20 TAB 0 Refills Prov: BUTCH HOUGH MD 11/28/21 Problem Qualifiers BUTCH HOUGH MD Nov 27, 2021 22:52
[2021-11-27] MEDS ORDERED: DEXAMETHASONE 4 MG TABLET PO ONE (23:15)
[2021-11-27] MEDS ORDERED: MIDAZOLAM HCL PF 5 MG/5 ML VIAL. IM ONE (23:15)
[2021-11-27] MEDS ORDERED: METOCLOPRAMIDE HCL 10 MG/2 ML VIAL. IM ONE (23:15)
[2021-11-27] MEDS ORDERED: KETOROLAC 60 MG/2 ML VIAL. IM ONE (23:15)
[2021-11-27] MEDS ORDERED: ONDANSETRON ODT 4 MG TAB.RAPDIS PO ONE (23:15)
[2021-11-28] MEDS ORDERED: LORA-254 PO (00:46)
[2021-11-28 00:56] VITALS: BP 98/60
== END 2021-11-28 00:59 | disposition home or self-care (01) ==
LOC: ER 22:09
DX: G43.909 Migraine, unspecified, not intractable, without status migrainosus (principal); R11.2 Nausea with vomiting, unspecified; I25.2 Old myocardial infarction; I50.9 Heart failure, unspecified; Z86.73 Personal history of transient ischemic attack (TIA), and cerebral infarction without residual deficits; Z88.1 Allergy status to other antibiotic agents; Z88.0 Allergy status to penicillin; Z88.8 Allergy status to other drugs, medicaments and biological substances
CPT/HCPCS: 96372; 99284; J1885; J2250; J2765; J8540; Q0162

== ENCOUNTER 2021-11-29 23:35 | Observation (INO) | payer MEDICARE ==
[~2021-11-29] VITALS: Ht 182.9 cm; Wt 80.4 kg
--- NOTE | 2021-11-30 01:20 | PHYS DOC ---
Past History Past Medical History: CHF, DC, Migraines, Stroke Additional Past Medical Histor: gastroparesis, degenerative disc d/o (neck), defibrillator Past Surgical History: Hysterectomy, Other Additional Past Surgical Histo: cardiac stents x 3; defib Smoking: Non-smoker Alcohol Use: None Drug Use: None Adult General Chief Complaint Chief Complaint: ABDOMINAL PAIN HPI HPI Patient is a 61-year-old female presenting for right upper quadrant pain. This is an acute on chronic issue. States this is been going on for past 6 months and has had numerous outpatient and ER visits for this. She is in the middle of extensive right upper quadrant/gallbladder work-up and pending HIDA scan this upcoming Wednesday. Nonetheless, she reports worsening right upper quadrant pain. Nothing known makes better or worse. Pain is sharp and stabbing and focal to right upper quadrant underneath rib cage. Timing of symptoms has been constant since onset but acutely worsened in the past 12 hours without any obvious ingestion, trauma or other exposure or mechanism of injury. States knee pain is caused her to be nauseous and she suffered x1 episode of nonbloody nonbilious emesis prior to arrival, reports stool has been unremarkable and she has otherwise been at baseline health. Review of Systems Review of Systems Fourteen body systems of review of systems have been reviewed. See HPI for pertinent positives and negative responses, other rod all other systems are negative, non-pertinent or non-contributory Allergies Allergies Allergies Coded Allergies Type Severity Reaction Last Updated Verified Cephalexin Monohydrate Allergy Intermediate Rash 11/05/21 Yes Penicillins Allergy Intermediate Rash 11/05/21 Yes ampicillin Allergy Intermediate Rash 11/05/21 Yes sumatriptan Adverse Reaction Severe DC 11/05/21 Yes sumatriptan succinate Adverse Reaction Severe 11/05/21 Yes Physical Exam Physical Exam Constitutional: Well developed, age-appropriate, no acute distress, non-toxic appearance. HENT: Normocephalic, atraumatic, bilateral external ears normal, oropharynx moist, no oral exudates, nose normal. Eyes: PERRLA, EOMI, conjunctiva normal, no discharge. Neck: Normal range of motion, no tenderness, supple, no stridor. Cardiovascular: Heart rate regular, sinus rhythm, no murmurs rubs or gallops Lungs & Thorax: Bilateral breath sounds clear to auscultation Abdomen: Bowel sounds normal, soft, right upper quadrant tenderness with palpation with positive Jama sign, voluntary guarding present without rebound, no masses, no pulsatile masses. Nonsurgical abdomen, no peritoneal signs Skin: Warm, dry, no erythema, no rash. Back: No tenderness, no CVA tenderness. Extremities: No tenderness, no cyanosis, no clubbing, ROM intact, no edema. Neurologic: Alert and oriented X 3, grossly normal motor & sensory function, no focal deficits noted. Psychologic: Anxious affect and mood Current Patient Data Lab Results Laboratory Tests Test 11/30/21 00:10 11/30/21 01:10 11/30/21 01:11 Urine Collection Type Void Urine Color Yellow Urine Clarity Clear Urine pH 6.0 Urine Specific Ackerman 1.020 Urine Protein Neg Urine Glucose (UA) Neg mg/dL Urine Ketones (Stick) Trace mg/dL Urine Blood Small Urine Nitrite Neg Urine Bilirubin Small Urine Urobilinogen Dipstick 0.2 mg/dL Urine Leukocyte Esterase Neg Urine RBC 3-5 /HPF Urine WBC Occ /HPF Urine Squamous Epithelial Cells Occ /LPF Urine Bacteria 0 /HPF White Blood Count 9.9 x10^3/uL Red Blood Count 3.64 x10^6/uL Hemoglobin 12.2 g/dL Hematocrit 36.9 % Mean Corpuscular Volume 101 fL Mean Corpuscular Hemoglobin 34 pg Mean Corpuscular Hemoglobin Concent 33 g/dL Red Cell Distribution Width 15.6 % Platelet Count 330 x10^3/uL Neutrophils (%) (Auto) 63 % Lymphocytes (%) (Auto) 27 % Monocytes (%) (Auto) 8 % Eosinophils (%) (Auto) 2 % Basophils (%) (Auto) 1 % Neutrophils # (Auto) 6.3 x10^3uL Lymphocytes # (Auto) 2.6 x10^3/uL Monocytes # (Auto) 0.8 x10^3/uL Eosinophils # (Auto) 0.2 x10^3/uL Basophils # (Auto) 0.1 x10^3/uL Sodium Level 142 mmol/L Potassium Level 2.6 mmol/L Chloride Level 101 mmol/L Carbon Dioxide Level 29 mmol/L Anion Gap 12 Blood Urea Nitrogen 8 mg/dL Creatinine 1.1 mg/dL Estimated GFR (Cockcroft-Gault) 61.3 BUN/Creatinine Ratio 7 Glucose Level 94 mg/dL Calcium Level 8.6 mg/dL Magnesium Level 2.3 mg/dL Total Bilirubin 0.2 mg/dL Aspartate Amino Transf (AST/SGOT) 33 U/L Alanine Aminotransferase (ALT/SGPT) 23 U/L Alkaline Phosphatase 65 U/L Troponin I High Sensitivity 15 ng/L Total Protein 5.8 g/dL Albumin 3.1 g/dL Albumin/Globulin Ratio 1.1 Lipase 69 U/L Influenza Type A (Rapid) Negative Influenza Type B (Rapid) Negative SARS-CoV-2 Antigen (Rapid) Negative Current Medications Medications (Trade) Dose Ordered Sig/Vannesa Route PRN Reason Start Time Stop Time Status Last Admin Dose Admin Ondansetron HCl (Zofran) 4 mg 1X ONCE IVP 11/30/21 01:30 11/30/21 01:31 DC 11/30/21 01:28 Sodium Chloride 500 ml @ 1,000 mls/hr 1X ONCE IV 11/30/21 01:30 11/30/21 01:59 DC 11/30/21 01:29 Fentanyl Citrate (Fentanyl 2ml Vial) 50 mcg 1X ONCE IVP 11/30/21 01:30 11/30/21 01:31 DC 11/30/21 01:28 Ondansetron HCl (Zofran) 4 mg STK-MED ONCE .ROUTE 11/30/21 01:23 11/30/21 01:23 DC Fentanyl Citrate (Fentanyl 2ml Vial) 100 mcg STK-MED ONCE .ROUTE 11/30/21 01:23 11/30/21 01:24 DC Iohexol (Omnipaque 300 Mg/ml) 75 ml 1X ONCE IV 11/30/21 01:45 11/30/21 01:46 DC 11/30/21 01:51 EKG EKG EKG ordered and interpreted by myself at 0405 hrs. is sinus rhythm 86 bpm, unremarkable intervals, no axis deviation, no obvious ischemic findings, no STEMI Radiology/Procedures Radiology/Procedures CT ABDOMEN+PELVIS W Clinical Indication: Reason: ruq pain, Comparison: CT abdomen and pelvis with contrast, April 08, 2021. Technique: Helical CT imaging of the abdomen and pelvis is performed after 75 cc of Omnipaque 300 IV contrast. Oral contrast not administered. Findings: There is mild bilateral dependent atelectasis. Cardiac size normal. Trace pericardial fluid. The gallbladder is distended. There is no gallbladder wall thickening or surrounding inflammation. There is unchanged hepatomegaly. The spleen, pancreas, adrenal glands, abdominal aorta, and kidneys are normal. The stomach is unremarkable. There is small fat-containing umbilical hernia. There is no dilated small bowel. There is scattered stool in the colon. There is no colon wall thickening. The appendix is normal. No abdominal adenopathy or free fluid. Urinary bladder is normal. Hysterectomy. No pelvic free fluid. Cyst of the right adnexa is unchanged. Vacuum disc phenomenon of L4/L5 and L5/S1. IMPRESSION: 1. Gallbladder is distended, otherwise normal. 2. Stable hepatomegaly. Electronically signed by: Charles Smith MD (11/30/2021 3:01 AM) [facility] Heart Score C/O Chest Pain: No Risk Factors: Risk Factors: DM, Current or recent (<one month) smoker, HTN, HLP, family histo ry of CAD, obesity. Risk Scores: Risk Factors: DM, Current or recent (<one month) smoker, HTN, HLP, family history of CAD, obesity. Course & Med Decision Making Course & Med Decision Making ABCs unremarkable HPI physical exam and comprehensive ER work-up nonconcerning for any emergent or surgical issues I did disclose entirety of ER findings most pertinent for hypokalemia in a patient with nausea and vomit. P.o. potassium given and subsequent IV potassium with plans for admission for further supplementation and recheck prior to safe discharge home Also disclosed nonemergent CT imaging of abdomen. Patient with chronic right upper quadrant pain in the middle of extensive outpatient gallbladder work-up. Nonsurgical abdomen, no indication for hospital transfer for surgical intervention at present Ultimately, I contacted patient's primary care physician who also serves as hospitalist, he agreed need for admission and accepted patient under his care I updated patient on entirety of ER findings as mentioned above in conversation with primary care physician, she was amenable to hospital admission for further inpatient medical management Dragon Disclaimer Dragon Disclaimer This electronic medical record was generated, in whole or in part, using a voice recognition dictation system. Departure Departure: Impression: Primary Impression: Hypokalemia Additional Impression: Abdominal pain Disposition: ADMITTED INPATIENT Admitting Physician: Stacy Gates Condition: STABLE Referrals: STACY GATES MD (PCP) Problem Qualifiers TODD GRISSOM DO Nov 30, 2021 01:20
[2021-11-30] MEDS ORDERED: ONDANSETRON PF 4 MG/2 ML VIAL. ONE (01:23)
[2021-11-30] MEDS ORDERED: IV NORMAL SALINE 500ML 500 ML IV ONE (01:30)
[2021-11-30] MEDS ORDERED: ONDANSETRON PF 4 MG/2 ML VIAL. IVP ONE ×2 (01:30→04:30)
[2021-11-30 01:36] LABS: BASO # 0.1 x10^3/uL (0.0-0.2); BASO % 1 % (0-3); EOS # 0.2 x10^3/uL (0.0-0.7); EOS % 2 % (0-3); HEMATOCRIT 36.9 % (36.0-47.0); HEMOGLOBIN 12.2 g/dL (12.0-15.5); LYMPH # 2.6 x10^3/uL (1.0-4.8); LYMPH % 27 % (24-48); MEAN CORPUSCULAR HEMOGLOBIN 34 pg (25-35); MEAN CORPUSCULAR HGB CONC 33 g/dL (31-37); MEAN CORPUSCULAR VOLUME 101 fL (79-100); MONO # 0.8 x10^3/uL (0.0-1.1); MONO % 8 % (0-9); NEUT # 6.3 x10^3uL (1.8-7.7); NEUT % 63 % (31-73); PLATELET COUNT 330 x10^3/uL (140-400); RED BLOOD COUNT 3.64 x10^6/uL (3.50-5.40); RED CELL DISTRIBUTION WIDTH 15.6 % (11.5-14.5); WHITE BLOOD COUNT 9.9 x10^3/uL (4.0-11.0)
[2021-11-30] MEDS ORDERED: IOHEXOL 300 MG/ML 75 ML VIAL. IV ONE (01:45)
[2021-11-30 01:56] LABS: BACTERIA,URINE 0 /HPF (0-FEW); BILIRUBIN,URINE SMALL (NEG); CLARITY,URINE CLEAR; COLOR,URINE YELLOW; GLUCOSE,URINE NEG (NEG); NITRITE,URINE NEG (NEG); SQUAMOUS EPITHELIAL CELL,UR OCC /LPF; UROBILINOGEN,URINE 0.2 mg/dL (0.2 mg/dL); WBC,URINE OCC /HPF (0-4)
[2021-11-30 01:56] LABS: ALBUMIN 3.1 g/dL (3.4-5.0); ALBUMIN/GLOBULIN RATIO 1.1 (1.0-1.7); CALCIUM 8.6 mg/dL (8.5-10.1); CREATININE 1.1 mg/dL (0.6-1.0); GFR 61.3; TOTAL BILIRUBIN 0.2 mg/dL (0.2-1.0); TOTAL PROTEIN 5.8 g/dL (6.4-8.2)
[2021-11-30 01:59] LABS: POTASSIUM 2.6 mmol/L (3.5-5.1)
[2021-11-30 02:08] LABS: INFLUENZA A PATIENT NEGATIVE (NEGATIVE); INFLUENZA B PATIENT NEGATIVE (NEGATIVE)
--- NOTE | 2021-11-30 03:04 | RAD ---
PQRS Compliance Statement: One or more of the following individualized dose reduction techniques were utilized for this examinat ion: 1. Automated exposure control 2. Adjustment of the mA and/or kV according to patient size 3. Use of iterative reconstruction technique CT ABDOMEN+PELVIS W Clinical Indication: Reason: ruq pain, Comparison: CT abdomen and pelvis with contrast, April 08, 2021. Technique: Helical CT imaging of the abdomen and pelvis is performed after 75 cc of Omnipaque 300 IV contrast. Oral contrast not administered. Findings: There is mild bilateral dependent atelectasis. Cardiac size normal. Trace pericardial fluid. The gallbladder is distended. There is no gallbladder wall thickening or surrounding inflammation. Th ere is unchanged hepatomegaly. The spleen, pancreas, adrenal glands, abdominal aorta, and kidneys are normal. The stomach is unremarkable. There is small fat-containing umbilical hernia. There is no dilated smal l bowel. There is scattered stool in the colon. There is no colon wall thickening. The appendix is no rmal. No abdominal adenopathy or free fluid. Urinary bladder is normal. Hysterectomy. No pelvic free fluid. Cyst of the right adnexa is unchanged. Vacuum disc phenomenon of L4/L5 and L5/S1. IMPRESSION: 1. Gallbladder is distended, otherwise normal. 2. Stable hepatomegaly. Electronically signed by: Charles Smith MD (11/30/2021 3:01 AM) [facility]
[2021-11-30] MEDS ORDERED: NITROGLYCERIN SUBLINGUAL 0.4 MG BOTTLE OF 25. SL PRN (04:15)
[2021-11-30] MEDS ORDERED: POTASSIUM CL 40MEQ IN 0.9%NACL 1,000 ML IV ONE (04:15)
[2021-11-30] MEDS ORDERED: POTASSIUM CHLORIDE 20 MEQ TABLET.ER. PO ONE (04:15)
[2021-11-30] MEDS ORDERED: ACETAMINOPHEN 325 MG TABLET PO PRN (04:15)
--- NOTE | 2021-11-30 05:48 | EKG ---
[address] [address] Test Date: 2021-11-30 Test Time: 03:59:12 Pat Name: JINNY MUKHERJEE Department: Room: 103 A Gender: F Osha Inspector: ANNABEL : 1960 Requested By: TODD GRISSOM Order Number: [id number] Reading MD: Rony Pelayo MD Measurements Intervals [place] Rate: 86 P: 38 ME: 184 QRS: -11 QRSD: 98 T: 102 QT: 344 QTc: 414 Interpretive Statements SINUS RHYTHM PROBABLE PRECORDIAL LEAD MISPLACEMENT Electronically Signed On 12-01-2021 9:14:55 HOME DELIVERY DRIVER by Rony Pelayo MD
[2021-11-30 06:04] VITALS: BP 97/65
[2021-11-30] MEDS ORDERED: C.DIFF MED SCREEN BY RX. MC SCH (06:30)
[2021-11-30] MEDS ORDERED: BACLOFEN 10 MG TABLET PO PRN (08:30)
[2021-11-30] MEDS ORDERED: ONDANSETRON ODT 4 MG TAB.RAPDIS PO PRN (08:30)
[2021-11-30] MEDS ORDERED: LORazepam 1 MG TABLET PO PRN (08:45)
[2021-11-30] MEDS: ARIPiprazole 10 MG TABLET PO SCH (09:00)
[2021-11-30] MEDS: SOTALOL 80 MG TABLET. PO SCH ×2 (09:00→21:20)
[2021-11-30] MEDS: FUROSEMIDE 40 MG TABLET PO SCH ×2 (09:00→21:00)
[2021-11-30] MEDS: ATORVASTATIN CALCIUM 20 MG TABLET PO SCH (09:00)
[2021-11-30] MEDS ORDERED: POTASSIUM CL 40MEQ IN 0.9%NACL 1,000 ML IV SCH (11:30)
[2021-11-30] MEDS: PROCHLORPERAZINE 10 MG/2 ML VIAL. IV PRN ×2 (11:41→21:16)
[2021-11-30] MEDS: LORazepam 1 MG TABLET PO SCH ×2 (11:42→21:15)
[2021-11-30] MEDS: ASPIRIN CHEWABLE 81 MG TABLET. PO SCH (11:42)
[2021-11-30] MEDS: PANTOPRAZOLE 40 MG TABLET. PO SCH (11:42)
[2021-11-30] MEDS: METOCLOPRAMIDE 10 MG TABLET PO SCH ×2 (11:42→21:15)
[2021-11-30] MEDS: TOPIRAMATE 25 MG TABLET. PO SCH ×2 (11:42→21:15)
[2021-11-30] MEDS: PROMETHAZINE 25 MG TABLET. PO SCH ×3 (11:42→21:15)
[2021-11-30 12:05] VITALS: BP 95/60
--- NOTE | 2021-11-30 12:53 | HP ---
DATE OF SERVICE: 11/30/2021 ADMIT DATE: 11/30/2021 HISTORY OF PRESENT ILLNESS: This is a 61-year-old female came in, she was extremely dehydrated. Potassium was in the low 2 range. As a result of this, the patient came in. The patient was extremely weak. She has been having problems with severe nausea and vomiting, unable to keep things down. She has been having numerous visits to the ER. She has been seen by GI doctor. Apparently having right upper quadrant pain, gallbladder workup by GI, Dr. Kolb. PIPIDA scan pending making her nauseated, unable to keep anything down. Pain is 8-9/10. Says it has gotten worse here in the last 24 hours, also having severe knee pain. The patient will be monitored carefully on that. That is why she was brought in to maintain and correct her potassium, dehydration, control of this right upper quadrant pain and see if surgical intervention would be indicated if we can get diversion, is on at [place] or not able to exactly transferred down for surgical consultation. PAST MEDICAL HISTORY: Heart attack, angina, congestive heart failure, coronary stent, internal defibrillator, hypercholesterolemia, GERD, hysterectomy, kidney stones, depression. Influenza pneumococcal vaccinations. FAMILY HISTORY: Diabetes, hypertension. CARDIOVASCULAR: Angina. ALLERGIES: KEFLEX, PENICILLINS, SUMATRIPTAN TYPE DRUGS. SOCIAL HISTORY: Denies smoking, alcohol or drug use. Full code. REVIEW OF SYSTEMS: The patient has a chronic migraine-like headaches, been worked up for that in the past. The patient has chronic nausea, vomiting and the patient otherwise denies any melena and hematochezia or hematemesis and neurologically intact except for the patient does seem to be in quite a bit of discomfort and the like. The patient otherwise will be continued to be monitored carefully, make further evaluation in that regard. The patient otherwise denies any problem with urination. Denies any melena, hematochezia is hematemesis. Neurologically stable there. PHYSICAL EXAMINATION: GENERAL: She is a pleasant -F[place]ish female, in moderate amount of discomfort holding her right side. VITAL SIGNS: Blood pressure anywhere from 102/54 down to 95/60, respiratory rate 20, pulse 92, afebrile, room air 95%. HEENT: The patient's head was atraumatic, normocephalic. Eyes: PERRLA without jaundice. The mouth and throat were normal. NECK: Supple, no JVD or thyromegaly. LUNGS: Diminished, but clear. CARDIOVASCULAR: Regular sinus rhythm. ABDOMEN: Soft, tender in the right upper quadrant area with positive Jama sign. Slight guarding, but no rebounding, positive bowel sounds. EXTREMITIES: No clubbing, cyanosis, nor edema. NEUROLOGIC: The patient was alert and oriented x 3. LABORATORY DATA: The patient's labs, CBC was unremarkable. The patient's chemistry showed a potassium of 2.6. Liver enzymes are normal. Albumin low at 3.1, creatinine elevated at 1.1, magnesium stable at 2.3. ASSESSMENT AND PLAN: The patient otherwise will be admitted for further evaluation of her abdominal pain, right upper quadrant pain, hypokalemia of 2.6, history of coronary artery disease, hypotension, nausea, vomiting, unable to eat or drink. Presently receiving IV fluids as well as antiemetics. We will try to get her stabilized and hopefully maybe even transferred down to [place] tomorrow for surgical consultation. RAFAL DR: Valery TID: [id number]
[2021-11-30 15:00] VITALS: BP 105/66
[2021-11-30] MEDS: POTASSIUM CL 40MEQ IN 0.9%NACL 1,000 ML IV SCH (15:43)
[2021-11-30 19:53] VITALS: BP 97/61
[2021-11-30] MEDS: traMADol 50 MG TABLET PO PRN (21:16)
[2021-11-30 22:33] VITALS: BP 92/59
[2021-12-01] MEDS: traMADol 50 MG TABLET PO PRN (04:34)
[2021-12-01 05:11] VITALS: BP 112/72
[2021-12-01] MEDS: POTASSIUM CL 40MEQ IN 0.9%NACL 1,000 ML IV SCH (06:10)
[2021-12-01 06:15] LABS: BASO % 1 % (0-3); EOS # 0.3 x10^3/uL (0.0-0.7); EOS % 5 % (0-3); HEMATOCRIT 36.1 % (36.0-47.0); HEMOGLOBIN 11.6 g/dL (12.0-15.5); LYMPH # 2.2 x10^3/uL (1.0-4.8); LYMPH % 31 % (24-48); MEAN CORPUSCULAR HEMOGLOBIN 33 pg (25-35); MEAN CORPUSCULAR HGB CONC 32 g/dL (31-37); MEAN CORPUSCULAR VOLUME 102 fL (79-100); MONO # 0.6 x10^3/uL (0.0-1.1); MONO % 8 % (0-9); NEUT % 56 % (31-73); PLATELET COUNT 325 x10^3/uL (140-400); RED BLOOD COUNT 3.52 x10^6/uL (3.50-5.40); WHITE BLOOD COUNT 7.2 x10^3/uL (4.0-11.0)
[2021-12-01 06:23] LABS: CALCIUM 8.4 mg/dL (8.5-10.1); CREATININE 0.9 mg/dL (0.6-1.0); GFR 77.3; POTASSIUM 3.6 mmol/L (3.5-5.1)
[2021-12-01 08:14] VITALS: BP 112/72
[2021-12-01] MEDS: SOTALOL 80 MG TABLET. PO SCH (08:14)
[2021-12-01] MEDS: PANTOPRAZOLE 40 MG TABLET. PO SCH (08:14)
[2021-12-01] MEDS: METOCLOPRAMIDE 10 MG TABLET PO SCH (08:14)
[2021-12-01] MEDS: PROMETHAZINE 25 MG TABLET. PO SCH (08:14)
[2021-12-01] MEDS: ASPIRIN CHEWABLE 81 MG TABLET. PO SCH (08:14)
[2021-12-01] MEDS: FUROSEMIDE 40 MG TABLET PO SCH (08:15)
[2021-12-01] MEDS: TOPIRAMATE 25 MG TABLET. PO SCH (08:15)
[2021-12-01] MEDS: ATORVASTATIN CALCIUM 20 MG TABLET PO SCH (08:15)
[2021-12-01] MEDS: ARIPiprazole 10 MG TABLET PO SCH (08:15)
[2021-12-01] MEDS: LORazepam 1 MG TABLET PO SCH (08:16)
[2021-12-01] MEDS: PROCHLORPERAZINE 10 MG/2 ML VIAL. IV PRN (08:16)
--- NOTE | 2021-12-01 11:18 | DS ---
DATE OF DISCHARGE: 12/01/2021 HOSPITAL COURSE SUMMARY: The patient came in with severe nausea, vomiting intractable and unable to keep things down. Her potassium was down to 2.6. She was given additional fluids with IV potassium; and while the patient could not keep anything down, she gradually got better with the hydration and further evaluation. She will be seen by Dr. Bee, her outpatient GI doctor, for possible gallbladder problems. Otherwise, her blood pressure here in the hospital 112/70, respiration 18, pulse 85, afebrile. Hemoglobin slightly low at 11.6 and 36, potassium went from 2.6 to 3.6 with appropriate treatment. Her moderate protein malnutrition at 3.1. The patient otherwise made good progress in her renal function and improved as well with hydration. SARS negative. IMPRESSION: Intractable nausea, vomiting, dehydration, severe hypokalemia, right upper quadrant abdominal pain, anemia of chronic disease, SARS negative, moderate protein malnutrition. She will follow up accordingly as noted above. LATASHA/CHRISTEN/HEATHER DR: LATASHA/jessika TID: [id number]
== END 2021-12-01 09:15 | disposition home or self-care (01) ==
LOC: ER 23:35 → INTOOBSV 11-30 04:13 → ER HOLD 11-30 04:13 → 1 SOUTH 11-30 05:01
PROVIDERS: ADMIT Family Medicine; ATTEND Family Medicine
DX: E86.0 Dehydration (principal); Z20.822 Contact with and (suspected) exposure to COVID-19; E87.6 Hypokalemia; K31.84 Gastroparesis; I25.10 Atherosclerotic heart disease of native coronary artery without angina pectoris; I95.9 Hypotension, unspecified; E78.00 Pure hypercholesterolemia, unspecified; R10.11 Right upper quadrant pain; R11.2 Nausea with vomiting, unspecified; K21.9 Gastro-esophageal reflux disease without esophagitis; I25.2 Old myocardial infarction; I50.9 Heart failure, unspecified; D64.9 Anemia, unspecified; E46 Unspecified protein-calorie malnutrition; G43.909 Migraine, unspecified, not intractable, without status migrainosus; F32.9 Major depressive disorder, single episode, unspecified; Z86.73 Personal history of transient ischemic attack (TIA), and cerebral infarction without residual deficits; Z87.442 Personal history of urinary calculi; Z90.710 Acquired absence of both cervix and uterus; Z95.5 Presence of coronary angioplasty implant and graft; Z95.1 Presence of aortocoronary bypass graft; Z95.810 Presence of automatic (implantable) cardiac defibrillator; Z68.24 Body mass index [BMI] 24.0-24.9, adult
CPT/HCPCS: 36415; 74177; 80048; 80053; 81001; 83690; 83735; 84132; 84484; 85025; 87428; 93005; 96365; 96366; 96375; 96376; 99285; G0378; J0780; J2405; J3010; J7040; Q0169; Q9967; U0003; G0379

== ENCOUNTER → 2022-01-05 | Outpatient (CLI) | payer MEDICARE ==
[2021-12-14 11:29] VITALS: BP 97/65
[~2022-01-05] MED LIST changes: +BENZ200C47 PO; +FLUT16SP21 NS; +HYDR-2759 PO; +NORT25CA PO; +TOPI100T8 PO
[2022-01-05 13:23] LABS: BASO # 0.1 x10^3/uL (0.0-0.2); BASO % 1 % (0-3); EOS # 0.4 x10^3/uL (0.0-0.7); EOS % 5 % (0-3); HEMATOCRIT 30.2 % (36.0-47.0); HEMOGLOBIN 9.6 g/dL (12.0-15.5); LYMPH # 1.9 x10^3/uL (1.0-4.8); LYMPH % 27 % (24-48); MEAN CORPUSCULAR HEMOGLOBIN 34 pg (25-35); MEAN CORPUSCULAR HGB CONC 32 g/dL (31-37); MEAN CORPUSCULAR VOLUME 108 fL (79-100); MONO # 0.9 x10^3/uL (0.0-1.1); MONO % 12 % (0-9); NEUT % 55 % (31-73); PLATELET COUNT 232 x10^3/uL (140-400); WHITE BLOOD COUNT 7.2 x10^3/uL (4.0-11.0)
[2022-01-05 13:39] LABS: ALBUMIN 3.3 g/dL (3.4-5.0); ALBUMIN/GLOBULIN RATIO 1.2 (1.0-1.7); CALCIUM 8.4 mg/dL (8.5-10.1); CREATININE 0.8 mg/dL (0.6-1.0); GFR 88.5; MAGNESIUM 2.3 mg/dL (1.8-2.4); PHOSPHORUS 4.2 mg/dL (2.6-4.7); POTASSIUM 4.2 mmol/L (3.5-5.1); TOTAL BILIRUBIN 0.1 mg/dL (0.2-1.0)
== END ==
LOC: SPEC 13:14
PROVIDERS: ATTEND Family Medicine
DX: Z45.2 Encounter for adjustment and management of vascular access device (principal); I10 Essential (primary) hypertension
CPT/HCPCS: 36415; 80053; 83735; 84100; 84478; 85025

== ENCOUNTER 2022-02-01 15:57 | Emergency (ER) | payer MEDICARE ==
[~2022-02-01] VITALS: Ht 180.3 cm; Wt 80.1 kg
[2022-02-01] MEDS ORDERED: ONDANSETRON PF 4 MG/2 ML VIAL. IV ONE (16:30)
[2022-02-01] MEDS ORDERED: IV NORMAL SALINE 1,000ML 1,000 ML IV ONE (16:30)
[2022-02-01] MEDS ORDERED: HYDROmorphone PF 1 MG/ML DISP.SYRIN IVP ONE (16:30)
[2022-02-01] MEDS ORDERED: CONTRAST GIVEN. MC PRN (16:45)
--- NOTE | 2022-02-01 16:46 | PHYS DOC ---
Past History Past Medical History: CHF, [place], Migraines, Stroke Additional Past Medical Histor: gastroparesis, degenerative disc d/o (neck), defibrillator;wt loss Past Surgical History: Cholecystectomy, Hysterectomy, Other Additional Past Surgical Histo: defibrillator;br bx, dental surgery;card stents Smoking: Non-smoker Alcohol Use: None Drug Use: None Adult General Chief Complaint Chief Complaint: ABDOMINAL PAIN HPI HPI Patient is a 61-year-old female presenting to the emergency department for evaluation of abdominal pain nausea and vomiting that has been going on for the past 3 days. Patient was [facility] and December for intractable abdominal pain nausea vomiting and had a cholecystectomy and required a PICC line for nutrition and was sent home and appeared to be doing well until 3 days ago when she says she started experiencing same symptoms over again. She says the emesis is a brownish color but she is still having bowel movements and passing gas. She denies any bloody stools. She is in no acute distress with normal vital signs. Review of Systems Review of Systems Constitutional: Denies fever or chills [] Eyes: Denies change in visual acuity, redness, or eye pain [] HENT: Denies nasal congestion or sore throat [] Respiratory: Denies cough or shortness of breath [] Cardiovascular: No additional information not addressed in HPI [] GI: + abdominal pain, nausea, vomiting. No bloody stools or diarrhea [] : Denies dysuria or hematuria [] Musculoskeletal: Denies back pain or joint pain [] Integument: Denies rash or skin lesions [] Neurologic: Denies headache, focal weakness or sensory changes [] All other systems were reviewed and found to be within normal limits, except as documented in this note. Current Medications Current Medications Current Medications Medications (Trade) Dose Ordered Sig/Vannesa Start Time Stop Time Status Last Admin Dose Admin Hydromorphone HCl (Dilaudid) 1 mg 1X ONCE 02/01/22 16:30 02/01/22 16:31 DC 02/01/22 16:34 1 MG Info (Do NOT chart on this entry -- for MONITORING) 1 each PRN DAILY PRN 02/01/22 16:45 02/03/22 16:44 Iohexol (Omnipaque 300 Mg/ml) 75 ml 1X ONCE 02/01/22 17:00 02/01/22 17:01 Ondansetron HCl (Zofran) 8 mg 1X ONCE 02/01/22 16:30 02/01/22 16:31 DC 02/01/22 16:34 8 MG Sodium Chloride 1,000 ml @ 1,000 mls/hr 1X ONCE 02/01/22 16:30 02/01/22 17:29 02/01/22 16:33 1,000 MLS/HR Allergies Allergies Allergies Coded Allergies Type Severity Reaction Last Updated Verified Cephalexin Monohydrate Allergy Intermediate Rash 11/30/21 Yes Penicillins Allergy Intermediate Rash 11/30/21 Yes ampicillin Allergy Intermediate Rash 11/30/21 Yes sumatriptan Adverse Reaction Severe UT 11/30/21 Yes sumatriptan succinate Adverse Reaction Severe 11/30/21 Yes Physical Exam Physical Exam Constitutional: Well developed, well nourished, no acute distress, non-toxic appearance. [] HENT: Normocephalic, atraumatic, bilateral external ears normal, oropharynx moist, no oral exudates, nose normal. [] Eyes: PERRLA, EOMI, conjunctiva normal, no discharge. [] Neck: Normal range of motion, no tenderness, supple, no stridor. [] Cardiovascular:Heart rate regular rhythm, no murmur [] Lungs & Thorax: Bilateral breath sounds clear to auscultation [] Abdomen: Bowel sounds normal, soft, diffuse tenderness to palpation with no rebound or guarding Skin: Warm, dry, no erythema, no rash. [] Back: No tenderness, no CVA tenderness. [] Extremities: No tenderness, no cyanosis, no clubbing, ROM intact, no edema. [] Neurologic: Alert and oriented X 3, normal motor function, normal sensory function, no focal deficits noted. [] Current Patient Data Vital Signs Vital Signs Date Time Temp Pulse Resp B/P (MAP) Pulse Ox O2 Delivery O2 Flow Rate FiO2 02/01/22 16:34 18 Room Air 02/01/22 16:16 98 142/66 (91) 99 EKG EKG [] Radiology/Procedures Radiology/Procedures [] Heart Score C/O Chest Pain: No Risk Factors: Risk Factors: DM, Current or recent (<one month) smoker, HTN, HLP, family history of CAD, obesity. Risk Scores: Risk Factors: DM, Current or recent (<one month) smoker, HTN, HLP, family history of CAD, obesity. Course & Med Decision Making Course & Med Decision Making I will check labs and imaging treat symptoms and reassess. Labs are unremarkable but CT is pending so I will transfer care to Dr. Jones at shift change at 1800 pending final disposition plan. Dragon Disclaimer Dragon Disclaimer This electronic medical record was generated, in whole or in part, using a voice recognition dictation system. Departure Departure: Impression: Primary Impression: Abdominal pain Additional Impression: Nausea & vomiting Condition: STABLE Referrals: STACY GATES MD (PCP) Problem Qualifiers Primary Impression: Abdominal pain Abdominal location: generalized Qualified Codes: R10.84 - Generalized abdominal pain LOUIE MARSHALL DO Feb 01, 2022 16:46
[2022-02-01] MEDS ORDERED: IOHEXOL 300 MG/ML 75 ML VIAL. IV ONE (17:00)
[2022-02-01 17:03] LABS: BASO # 0.1 x10^3/uL (0.0-0.2); BASO % 1 % (0-3); EOS # 0.1 x10^3/uL (0.0-0.7); EOS % 1 % (0-3); HEMATOCRIT 36.3 % (36.0-47.0); LYMPH # 2.3 x10^3/uL (1.0-4.8); LYMPH % 26 % (24-48); MEAN CORPUSCULAR HEMOGLOBIN 34 pg (25-35); MEAN CORPUSCULAR HGB CONC 33 g/dL (31-37); MEAN CORPUSCULAR VOLUME 102 fL (79-100); MONO # 1.1 x10^3/uL (0.0-1.1); MONO % 13 % (0-9); NEUT # 5.2 x10^3uL (1.8-7.7); NEUT % 59 % (31-73); PLATELET COUNT 453 x10^3/uL (140-400); RED BLOOD COUNT 3.56 x10^6/uL (3.50-5.40); WHITE BLOOD COUNT 8.8 x10^3/uL (4.0-11.0)
[2022-02-01 17:15] LABS: CREATININE 0.8 mg/dL (0.6-1.0); GFR 88.5; POTASSIUM 3.3 mmol/L (3.5-5.1)
[2022-02-01 17:20] LABS: ALBUMIN 3.5 g/dL (3.4-5.0); ALBUMIN/GLOBULIN RATIO 1.3 (1.0-1.7); TOTAL BILIRUBIN 0.2 mg/dL (0.2-1.0); TOTAL PROTEIN 6.3 g/dL (6.4-8.2)
--- NOTE | 2022-02-01 18:32 | RAD ---
EXAMINATION: CT abdomen and pelvis without IV contrast. INDICATION:61 years, Female, diffuse abdominal pain, brown emesis for 3 days. TECHNIQUE: Axial CT images of the abdomen and pelvis were obtained. Coronal and sagittal reformatted performed. COMPARISON: 11/30/2021. Exposure: One or more of the following individualized dose reduction techniques were utilized for thi s examination: 1. Automated exposure control 2. Adjustment of the mA and/or kV according to patient size 3. Use of iterative reconstruction technique. FINDINGS: LOWER CHEST: Dependent subsegmental atelectasis in bibasilar lungs. Trace amount of pericardial effusion. ABDOMEN/PELVIS: Similar mild hepatomegaly. No suspicious focal hepatic lesion. Cholecystectomy. Dilated central intra hepatic and extrahepatic biliary ducts with smooth tapering distally, the maximum diameter of the com mon bile duct measures 1.1 cm. Subcentimeter hypodensity in the spleen, small to characterize. Diffus e atrophic pancreas. No adrenal nodule. No hydronephrosis. Subcentimeter hypodensity in the superior pole left kidney, too small to characterize. Wall thickening of the distal stomach and pylorus without adjacent fat stranding. No bowel dilation. Appendix is not seen with certainty. Normal caliber abdominal aorta. Mesenteric arteries and portal v eins are patent. No pneumoperitoneum or ascites. No lymphadenopathy in the abdomen or pelvis by size criteria. Unremarkable urinary bladder. Hysterectomy. MUSCULOSKELETAL STRUCTURES: No acute osseous process. Degenerative changes at L5-S1. IMPRESSION: 1. Wall thickening of the distal stomach and pylorus without adjacent fat stranding. Correlate for g astritis/peptic ulcer disease. 2. Dilated central intrahepatic and extrahepatic biliary ducts with smooth tapering distally, stable to slightly worsened since prior exam. Correlate with lab values. If there is concern for biliary ob struction, MRCP could be obtained. Electronically signed by: Lashell Mars MD (02/01/2022 6:29 PM) [facility]
[2022-02-01] MEDS ORDERED: FAMOTIDINE 20 MG/2 ML VIAL IVP ONE (18:45)
[2022-02-01] MEDS ORDERED: PANTOPRAZOLE IV 40 MG VIAL. IVP ONE (18:45)
[2022-02-01] MEDS ORDERED: HYDR-2759 PO (18:53)
[2022-02-01] MEDS ORDERED: HYDROcodone/APAP 5/325MG 1 TAB TABLET PO ONE (19:00)
[2022-02-01 19:10] VITALS: BP 142/80
== END 2022-02-01 19:16 | disposition home or self-care (01) ==
LOC: ER 16:05
DX: R10.84 Generalized abdominal pain (principal); R11.2 Nausea with vomiting, unspecified; I50.9 Heart failure, unspecified; I25.2 Old myocardial infarction; G43.909 Migraine, unspecified, not intractable, without status migrainosus; Z86.73 Personal history of transient ischemic attack (TIA), and cerebral infarction without residual deficits; Z90.49 Acquired absence of other specified parts of digestive tract; Z90.710 Acquired absence of both cervix and uterus; Z88.0 Allergy status to penicillin; Z88.1 Allergy status to other antibiotic agents; Z88.8 Allergy status to other drugs, medicaments and biological substances
CPT/HCPCS: 36415; 74177; 80053; 83690; 84484; 85025; 96361; 96374; 96375; 99285; C9113; G0480; J1170; J2405; J3490; J7030; Q9967

== ENCOUNTER 2022-02-03 17:27 | Emergency (ER) | payer MEDICARE ==
[~2022-02-03] VITALS: Ht 180.3 cm; Wt 80.1 kg
--- NOTE | 2022-02-03 18:24 | PHYS DOC ---
Past History Past Medical History: CHF, [place], Migraines, Stroke Additional Past Medical Histor: gastroparesis, degenerative disc d/o (neck), defibrillator;wt loss Past Surgical History: Cholecystectomy, Hysterectomy, Other Additional Past Surgical Histo: defibrillator;br bx, dental surgery;card stents Smoking: Non-smoker Alcohol Use: None Drug Use: None Adult General Chief Complaint Chief Complaint: ABDOMINAL PAIN HPI HPI Patient is a 61-year-old female who presents with a chief complaint of right lower quadrant abdominal pain associated with nausea and vomiting. States she had an appendectomy 7 weeks ago at [place]. States that ever since then she has been having these intermittent pains, 7 out of 10 at its worst, dull and achy in nature in the right lower quadrant with a little radiation up towards her umbilicus. States she did have 1 episode of nonbilious nonbloody emesis earlier in the day. States she is otherwise eating and drinking normally. States he is making urine and stool normally for her with no blood in either. States she had not taken any medications for this. States she has contacted her surgeon about it and stated that they did not do anything about it. Review of Systems Review of Systems Review of systems otherwise unremarkable except noted in HPI Allergies Allergies Allergies Coded Allergies Type Severity Reaction Last Updated Verified Cephalexin Monohydrate Allergy Intermediate Rash 11/30/21 Yes Penicillins Allergy Intermediate Rash 11/30/21 Yes ampicillin Allergy Intermediate Rash 11/30/21 Yes sumatriptan Adverse Reaction Severe ND 11/30/21 Yes sumatriptan succinate Adverse Reaction Severe 11/30/21 Yes Physical Exam Physical Exam Constitutional: Well developed, well nourished, no acute distress, non-toxic a ppearance. [] HENT: Normocephalic, atraumatic, bilateral external ears normal, oropharynx moist, no oral exudates, nose normal. [] Eyes: conjunctiva normal, no discharge. [] Neck: Normal range of motion, no tenderness, supple, no stridor. [] Cardiovascular:Heart rate regular rhythm, no murmur [] Lungs & Thorax: Bilateral breath sounds clear to auscultation [] Abdomen: soft, no tenderness, no masses, no pulsatile masses. [] Skin: Warm, dry, no erythema, no rash. [] Back: No tenderness, no CVA tenderness. [] Extremities: No tenderness, no cyanosis, no clubbing, ROM intact, no edema. [] Neurologic: Alert and oriented X 3, normal motor function, normal sensory function, no focal deficits noted. [] Psychologic: Affect normal, judgement normal, mood normal. [] Current Patient Data Vital Signs Vital Signs Date Time Temp Pulse Resp B/P (MAP) Pulse Ox O2 Delivery O2 Flow Rate FiO2 02/03/22 18:07 98.5 90 16 126/66 (86) 98 Room Air EKG EKG [] Radiology/Procedures Radiology/Procedures [] Heart Score C/O Chest Pain: No Risk Factors: Risk Factors: DM, Current or recent (<one month) smoker, HTN, HLP, family history of CAD, obesity. Risk Scores: Risk Factors: DM, Current or recent (<one month) smoker, HTN, HLP, family history of CAD, obesity. Course & Med Decision Making Course & Med Decision Making Patient is a 61-year-old female presents with abdominal pain, nausea and vomiting Vital signs not concerning. Physical exam noted above. Given medicines for pain and nausea. Given GI cocktail. Laboratory analysis not concerning. CT notable for persistent mild inflammatory changes at the gastric antrum and proximal duodenum suggestive of gastroduodenitis or peptic ulcer disease. Discussed all findings with patient. Discussed diet and hydration over the next several days. Discussed symptom control and advised to begin treatment with omeprazole and Tums. Advised to follow-up in the morning first thing with primary care physician to discuss ED visit and have him set up an EGD and discuss peptic ulcer disease. Dragon Disclaimer Dragon Disclaimer This electronic medical record was generated, in whole or in part, using a voice recognition dictation system. Departure Departure: Impression: Primary Impression: Abdominal pain Additional Impression: Peptic ulcer disease Disposition: HOME / SELF CARE / HOMELESS Condition: STABLE Referrals: STACY GATES MD (PCP) Patient Instructions: Diet for Peptic Ulcer Disease, Peptic Ulcer Disease Additional Instructions: Thank you for coming into the emergency department tonight allowing us to take care of you. Please read the attached information carefully to go back over some of the things we discussed. As we discussed adjust your diet accordingly and stay well-hydrated. Please take an omeprazole/heartburn medicine, daily as well as Tums as needed. Please follow-up in the morning to discuss your ED visit with your primary care physician and discuss the need for your scope of your esophagus/stomach called an EGD. Please come back with new or concerning symptoms as we discussed. Problem Qualifiers BUTCH HOUGH MD Feb 03, 2022 18:24
[2022-02-03] MEDS ORDERED: IV RINGERS SOLUTION,LACTATED 1,000 ML IV ONE (18:30)
[2022-02-03] MEDS ORDERED: METOCLOPRAMIDE HCL 10 MG/2 ML VIAL. IVP ONE (18:30)
[2022-02-03] MEDS ORDERED: ONDANSETRON PF 4 MG/2 ML VIAL. IVP ONE (18:30)
[2022-02-03] MEDS ORDERED: KETOROLAC 15 MG/ML VIAL. IVP ONE (19:00)
--- NOTE | 2022-02-03 19:13 | RAD ---
PQRS Compliance Statement: One or more of the following individualized dose reduction techniques were utilized for this examinat ion: 1. Automated exposure control 2. Adjustment of the mA and/or kV according to patient size 3. Use of iterative reconstruction technique CT abdomen/pelvis without contrast 02/03/2022 6:25 PM INDICATION: Right lower quadrant abdominal pain. COMPARISON: CT abdomen/pelvis 02/01/2022 TECHNIQUE: Multiple axial CT images of the abdomen and pelvis were obtained without intravenous contr ast. Coronal and sagittal reformats are provided. FINDINGS: Minimal bibasilar subsegmental atelectasis. Heart size within normal limits. Evaluation of solid abdo homa viscera is limited by lack of intravenous contrast. Liver, adrenal glands, spleen and pancreas are normal in appearance. Cholecystectomy changes are present. The abdominal aorta is normal in cours e and caliber. There are no pathologically enlarged lymph nodes in the abdomen and pelvis. There is n o abdominal free fluid. There is no free intraperitoneal air. The kidneys are relatively symmetric in appearance. There is no suspicious renal mass within the limitations of a noncontrast examination. T here is no hydronephrosis. There are no calculi within the kidneys, ureters or urinary bladder. Persistent mild wall thickening involving the gastric antrum and proximal duodenum as may be seen wit h gastroduodenitis. No associated obstruction. Retained oral contrast identified within the distal co paige. No significant dilated small large bowel loops. Limited evaluation of the cecum and terminal ile um secondary to underdistention and lack of oral contrast as region. Appendix is normal. Focal high d ensity is identified within the terminal ileum which may represent ingested pelvis measuring 7 mm. Urinary bladder is within normal limits given degree of distention. No suspicious pelvic mass. No sig nificant osseous abnormality is identified. IMPRESSION: 1. Persistent mild inflammatory changes identified at the gastric antrum and proximal duodenum as may be seen with gastroduodenitis or peptic ulcer disease. 2. Appendix is normal. 3. No obstructive uropathy is identified. 4. 7 mm focal hypodensity identified within the terminal ileum which could represent an ingested pill . No associated inflammatory change. Limited evaluation of the terminal ileum secondary to underdiste ntion. Electronically signed by: Toña Paul MD (02/03/2022 7:10 PM) [facility]
[2022-02-03 19:23] LABS: BASO # 0.1 x10^3/uL (0.0-0.2); BASO % 1 % (0-3); EOS # 0.2 x10^3/uL (0.0-0.7); EOS % 2 % (0-3); HEMOGLOBIN 12.5 g/dL (12.0-15.5); LYMPH # 3.1 x10^3/uL (1.0-4.8); LYMPH % 33 % (24-48); MEAN CORPUSCULAR HEMOGLOBIN 34 pg (25-35); MEAN CORPUSCULAR HGB CONC 33 g/dL (31-37); MEAN CORPUSCULAR VOLUME 102 fL (79-100); MONO % 10 % (0-9); NEUT # 5.1 x10^3uL (1.8-7.7); NEUT % 54 % (31-73); PLATELET COUNT 527 x10^3/uL (140-400); RED BLOOD COUNT 3.73 x10^6/uL (3.50-5.40); WHITE BLOOD COUNT 9.4 x10^3/uL (4.0-11.0)
[2022-02-03] MEDS ORDERED: LIDO:MAALOX 1:1 20 ML SINGLE DOSE. PO ONE (19:30)
[2022-02-03 19:33] LABS: CALCIUM 8.9 mg/dL (8.5-10.1); CREATININE 0.9 mg/dL (0.6-1.0); GFR 77.3; POTASSIUM 3.4 mmol/L (3.5-5.1)
[2022-02-03 19:38] LABS: ALBUMIN 3.4 g/dL (3.4-5.0); ALBUMIN/GLOBULIN RATIO 1.2 (1.0-1.7); MAGNESIUM 2.3 mg/dL (1.8-2.4); TOTAL BILIRUBIN 0.2 mg/dL (0.2-1.0); TOTAL PROTEIN 6.3 g/dL (6.4-8.2)
[2022-02-03 20:00] VITALS: BP 107/54
== END 2022-02-03 20:00 | disposition home or self-care (01) ==
LOC: ER 17:27
DX: K27.9 Peptic ulcer, site unspecified, unspecified as acute or chronic, without hemorrhage or perforation (principal); I50.9 Heart failure, unspecified; I25.2 Old myocardial infarction; G43.909 Migraine, unspecified, not intractable, without status migrainosus; Z86.73 Personal history of transient ischemic attack (TIA), and cerebral infarction without residual deficits; Z88.0 Allergy status to penicillin; Z88.8 Allergy status to other drugs, medicaments and biological substances; Z88.1 Allergy status to other antibiotic agents
CPT/HCPCS: 36415; 74176; 80053; 83690; 83735; 85025; 96361; 96374; 96375; 99284; J1885; J2405; J2765; J3010; J7120